=== PATIENT | female | born 1945 | race Caucasian/White ===

== ENCOUNTER 2019-07-11 13:29 | Outpatient (CLI) | payer MEDICARE, SELFPAY ==
--- NOTE | ~2019-07-11 | MM_ITS ---
EXAMINATION: MM screening magdalena BI w preeti HISTORY: Screening mammogram TECHNIQUE: Craniocaudal and mediolateral oblique 3-D tomosynthesis images were obtained and synthetic 2-D images were generated. CAD analysis was submitted and interpreted. COMPARISON: 05/13/2018, 04/08/2017, 02/12/2016 bilateral digital screening mammogram examinations BREAST PARENCHYMAL COMPOSITION: There are scattered areas of fibroglandular density. FINDINGS: Stable mild fibroglandular asymmetry. There are numerous bilateral benign calcifications in cluding calcified microhematomas, secretory calcifications, probable calcified small fibroadenomas. Approximately 3.6 x 6.5 mm asymmetric opacity is noted posteriorly in the outer mid left breast. Diag nostic left mammogram and targeted left breast ultrasound examination are recommended. Otherwise there is no evidence of suspicious mass, calcification, or architectural distortion to sugg est malignancy in either breast. There has been no other suspicious interval change. IMPRESSION: 1. 3.6 x 6.5 mm asymmetric opacity in posterior outer mid left breast 2. Diagnostic left mammogram and left breast ultrasound examination are recommended. BI-RADS Category 0: Incomplete: Needs additional imaging evaluation. Reviewed, dictated and finalized at location A. GER INTEL IMPRESSION: 1. 3.6 x 6.5 mm asymmetric opacity in posterior outer mid left breast 2. Diagnostic left mammogram and left breast ultrasound examination are recomme nded. BI-RADS Category 0: Incomplete: Needs additional imaging evaluation.
== END 2019-07-11 13:30 | disposition home or self-care (01) ==
PROVIDERS: PCP Internal Medicine; Visit Provider Internal Medicine
DX: Z12.31 Encounter for screening mammogram for malignant neoplasm of breast (principal)
CPT/HCPCS: 77063; 77067

== ENCOUNTER 2019-07-21 08:40 | Outpatient (CLI) | payer MEDICARE, SELFPAY ==
--- NOTE | ~2019-07-21 | MMUS_ITS ---
EXAMINATION: MM diagnostic magdalena LT w preeti, US breast LT limited HISTORY: Focal asymmetry of the left breast on screening mammogram TECHNIQUE: Additional 3-D tomosynthesis images of the left breast were performed and synthetic 2-D im ages were generated. CAD analysis was submitted and interpreted. High resolution limited left breast ultrasound was performed. COMPARISON: 07/11/2019, 05/27/2018, 05/13/2018, 04/08/2017, 02/12/2016 FINDINGS: MAMMOGRAPHIC FINDINGS: A focal asymmetry is present in the posterior third of the slightly outer breast at the 3:00 location 12 cm from the nipple. This has an appearance similar to prior mammograms with spot compression view s. There has been no suspicious interval change. ULTRASOUND: An intramammary lymph node is noted at the 2:00 location 9 cm from the nipple. On static sonographic images of the 2:00 location 5 cm from the nipple, there is suggestive of posterior shadowing however this is not discretely identified on the provided cine images. IMPRESSION: 1. Probably benign findings of the upper outer quadrant of the left breast. 2. Recommend 6 month follow-up left diagnostic mammogram and ultrasound. BI-RADS category 3, probably benign findings. Reviewed, dictated and finalized at location A. R MAKER IMPRESSION: 1. Probably benign findings of the upper outer quadrant of the left breast. 2. Recommend 6 month follow-up left diagnostic mammogram and ultrasound. BI-RADS category 3, probably benign findings.
== END 2019-07-21 08:41 | disposition home or self-care (01) ==
PROVIDERS: PCP Internal Medicine; Visit Provider Internal Medicine
DX: N64.89 Other specified disorders of breast (principal)
CPT/HCPCS: 76642; 77061; 77065; G0279

== ENCOUNTER 2020-05-30 12:26 | Outpatient (CLI) | payer MEDICARE, SELFPAY ==
[2020-05-30 13:06] LABS: SARS-CoV-2 Ag Negative (Negative)
== END 2020-05-30 12:27 | disposition home or self-care (01) ==
LOC: CHSLAB 12:30
PROVIDERS: PCP Internal Medicine; Visit Provider Internal Medicine
DX: Z20.828 Contact with and (suspected) exposure to other viral communicable diseases (principal)
CPT/HCPCS: 87426

== ENCOUNTER 2020-06-12 15:20 | Outpatient (CLI) | payer MEDICARE, SELFPAY ==
[2020-06-12 16:08] LABS: SARS-CoV-2 Ag Negative (Negative)
== END 2020-06-12 15:21 | disposition home or self-care (01) ==
LOC: CHSLAB 15:22
PROVIDERS: PCP Internal Medicine; Visit Provider Internal Medicine
DX: Z20.822 Contact with and (suspected) exposure to COVID-19 (principal)
CPT/HCPCS: 87426; C9803

== ENCOUNTER 2020-06-18 09:46 | Outpatient (CLI) | payer MEDICARE, SELFPAY ==
[2020-06-19 18:38] LABS: SARS-CoV-2 RNA PCR Negative
== END 2020-06-18 09:47 | disposition home or self-care (01) ==
LOC: CHSLAB 09:52
PROVIDERS: PCP Internal Medicine; Visit Provider Internal Medicine
DX: Z20.822 Contact with and (suspected) exposure to COVID-19 (principal)
CPT/HCPCS: C9803; U0003; U0005

== ENCOUNTER 2020-08-20 14:34 | Outpatient (CLI) | payer MEDICARE, SELFPAY ==
[2020-08-20 17:11] LABS: Influenza A QL RT-PCR Negative (Negative); Influenza B QL RT-PCR Negative (Negative); SARS-CoV-2 RNA PCR Negative
== END 2020-08-20 14:35 | disposition home or self-care (01) ==
PROVIDERS: PCP Internal Medicine; Visit Provider Internal Medicine
DX: R53.83 Other fatigue (principal)
CPT/HCPCS: 87502; C9803; U0003; U0005

== ENCOUNTER 2020-10-17 09:17 | Outpatient (CLI) | payer MEDICARE, SELFPAY ==
--- NOTE | ~2020-10-17 | MR_ITS ---
EXAMINATION: MR lumbar spine wo [facility] EXAM DATE: 10/17/2020 11:55 INDICATION: Spinal stenosis, lumbar region with neurogenic claudication TECHNIQUE: Multi-sequential, multiplanar MR images of the lumbar spine were obtained without contrast . Sagittal T1, T2, T2 fat saturation images. Axial T2 weighted images. Comparison is made to prior examination from 08/28/2012. FINDINGS: There is 5 mm anterolisthesis L4 on L5 with moderate loss of this disc height, mild at L3-4 . Moderate to severe loss of the L5-S1 disc height. The vertebral body heights are maintained. There are no suspicious marrow signal abnormalities. 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 This is a benign finding, is unchanged. Level by level evaluation: T12-L1: There is a minimal diffuse disc bulge. Facet arthropathy: Mild. Neural foraminal stenosis: No stenosis. Central canal stenosis: No stenosis. L1-L2: Disc does not extend beyond the endplate margin. Facet arthropathy: Mild. Neural foraminal stenosis: No stenosis. Central canal stenosis: No stenosis. L2-L3: Disc does not extend beyond the endplate margin. Facet arthropathy: Mild. Neural foraminal stenosis: No stenosis. Central canal stenosis: No stenosis. L3-L4: There is a mild diffuse disc bulge. Facet arthropathy: Moderate . Ligamentum flavum enlargement. Neural foraminal stenosis: Mild bilateral. Central canal stenosis: Mild. L4-L5: Tflp-gk-[id number] Facet arthropathy: Severe. Neural foraminal stenosis: Mild to moderate. Central canal stenosis: Moderate to severe. L5-S1: There is a mild diffuse disc bulge. Facet arthropathy: Moderate. Neural foraminal stenosis: Moderate bilateral, left greater than right. Central canal stenosis: Mild. Compared to 2013, significant progression in lower lumbar spondylosis. IMPRESSION: 1. L4-5 grade 1 anterolisthesis, moderate to severe central canal stenosis. 2. Stable focal cystic dilation of conus medullary central canal. Reviewed, dictated and finalized at location A.
== END 2020-10-17 09:18 | disposition home or self-care (01) ==
LOC: CHSIMG 09:18
PROVIDERS: PCP Internal Medicine; Visit Provider Internal Medicine
DX: M48.061 Spinal stenosis, lumbar region without neurogenic claudication (principal)
CPT/HCPCS: 72148

== ENCOUNTER 2020-10-30 09:27 | Outpatient (CLI) | payer MEDICARE, SELFPAY ==
--- NOTE | ~2020-10-30 | CT_ITS ---
EXAMINATION: CT lumbar spine wo con EXAM DATE: 10/30/2020 09:50 INDICATION: Lumbar disc disease with radiculopathy. TECHNIQUE: Spiral CT of the lumbar spine was performed without contrast. Axial, coronal and sagittal images lumbar spine were reviewed. The dose-length product (DLP) for this examination was 946.80 mG y-cm. The exposure was tailored according to patient size (auto mA exposure control), and iterative reconstruction (ASIR) was used as additional dose reduction technique. Correlation is made to Lumbar MR examination 10/17/2020. FINDINGS: There are several small foci of gas along the right side of the L5 spinous process. There i s 5 mm anterolisthesis L4 on L5 without spondylolysis. Moderate disc disease at this level, moderate to severe at the level below. Otherwise mild lumbar disc disease. There is moderate bilateral sacroil iac joint primary osteoarthritis. There are no bony erosions identified. Paraspinal soft tissue is u nremarkable. There is small sliding gastroesophageal hiatal hernia. Level by level evaluation: T12-L1: Disc does not extend beyond the endplate margin. Facet arthropathy: Mild. Neural foraminal stenosis: No stenosis. Central canal stenosis: No stenosis. L1-L2: Disc does not extend beyond the endplate margin. Facet arthropathy: Mild. Neural foraminal stenosis: No stenosis. Central canal stenosis: No stenosis. L2-L3: There is a minimal diffuse disc bulge. Facet arthropathy: Mild. Neural foraminal stenosis: No stenosis. Central canal stenosis: No stenosis. L3-L4: There is a mild diffuse disc bulge. Facet arthropathy: Moderate. Neural foraminal stenosis: Mild bilateral. Central canal stenosis: Mild to moderate. L4-L5: There is a moderate diffuse disc bulge. Facet arthropathy: Moderate to severe. Neural foraminal stenosis: Mild to moderate bilateral. Central canal stenosis: Moderate to severe. L5-S1: There is a mild to moderate diffuse disc bulge. Facet arthropathy: Moderate to severe. Neural foraminal stenosis: Moderate bilateral. Central canal stenosis: Mild. IMPRESSION: 1. L4-5 grade 1 anterolisthesis without spondylolysis, moderate to severe canal stenosis and facet a rthropathy. 2. L5-S1 moderate to severe disc disease and facet arthropathy. Moderate bilateral neural foraminal stenosis at this level, less at others. Reviewed, dictated and finalized at location D. IMPRESSION: 1. L4-5 grade 1 anterolisthesis without spondylolysis, moderate to severe dalton l stenosis and facet arthropathy. 2. L5-S1 moderate to severe disc disease and facet arthropathy. Moderate bila teral neural foraminal stenosis at this level, less at others.
== END 2020-10-30 09:28 | disposition home or self-care (01) ==
PROVIDERS: PCP Internal Medicine
DX: M51.16 Intervertebral disc disorders with radiculopathy, lumbar region (principal)
CPT/HCPCS: 72131

== ENCOUNTER 2020-11-22 17:09 | Outpatient (CLI) | payer MEDICARE, SELFPAY ==
--- NOTE | ~2020-11-22 | XR_ITS ---
EXAMINATION: XR chest 2V DATE: 11/22/2020 17:27 INDICATION: Right anterior chest pain. TECHNIQUE: Frontal and lateral views of the chest were obtained. COMPARISON: Chest 2 views 12/22/2018 FINDINGS: The chest demonstrates clear lungs without pneumonia, pleural effusion, or pneumothorax. Th e heart size is normal. There are surgical clips in the abdomen. IMPRESSION: 1. No acute cardiopulmonary disease. Reviewed, dictated and finalized at location A.
== END 2020-11-22 17:10 | disposition home or self-care (01) ==
LOC: CHSIMG 17:12
PROVIDERS: PCP Internal Medicine; Visit Provider Internal Medicine
DX: R07.9 Chest pain, unspecified (principal)
CPT/HCPCS: 71046

== ENCOUNTER 2020-11-26 08:03 | Outpatient (CLI) | payer MEDICARE, SELFPAY ==
--- NOTE | 2020-11-26 09:15 | EST_ITS ---
Patient Info Name: Beatris Clarke Age: 75 years : 1945 Gender: Female Ht: 60 in Wt: 171 lbs BSA: 1.85 m2 HR: 75 bpm BP: 126 / 78 mmHg Heart Rhythm: Sinus Rhythm Technical Quality: Excellent Exam Date: 11/26/2020 9:21 AM Exam Location: [facility] Patient Status: Outpatient Admit Date: 11/26/2020 Staff Ordering Physician: Waqar Armstrong MD Attending Provider: Waqar Armstrong MD Exercise Technologist: Helena Heredia CRT Exercise Physician: Angelia Momin CEP Exam Type: CA stress siena w NM Study Info Indications ChestPain - A nuclear stress test was performed. History/Risk Factors Hypertension: Yes History/Risk Factors HTN. Summary 1. 1. Negative lexiscan stress test for ischemic ST changes by ECG criteria. 2. 2. Stable hemodynamics throughout the test. 3. 3. Nuclear scan to follow and will be reported separately. Please correlate with it. Protocol: LEXISCAN Stress ECG Details Stage: REST Duration (min): 1 min : 25 sec HR (bpm): 73 SBP (mmHg): 126 DBP (mmHg): 78 Stage: REST Duration (min): 5 min : 11 sec HR (bpm): 84 SBP (mmHg): 126 DBP (mmHg): 78 Stage: STAGE 1 Duration (min): 0 min : 5 sec HR (bpm): 84 SBP (mmHg): 126 DBP (mmHg): 78 Stage: RECOVERY Duration (min): 0 min : 54 sec HR (bpm): 107 SBP (mmHg): 126 DBP (mmHg): 78 Stage: RECOVERY Duration (min): 1 min : 54 sec HR (bpm): 106 SBP (mmHg): 160 DBP (mmHg): 71 Stage: RECOVERY Duration (min): 2 min : 54 sec HR (bpm): 95 SBP (mmHg): 150 DBP (mmHg): 71 Stage: RECOVERY Duration (min): 3 min : 54 sec HR (bpm): 97 SBP (mmHg): 140 DBP (mmHg): 71 Stage: RECOVERY Duration (min): 4 min : 54 sec HR (bpm): 93 SBP (mmHg): 127 DBP (mmHg): 73 Stage: RECOVERY Duration (min): 5 min : 54 sec HR (bpm): 90 SBP (mmHg): 137 DBP (mmHg): 72 Stage: RECOVERY Duration (min): 6 min : 5 sec HR (bpm): 92 SBP (mmHg): 137 DBP (mmHg): 72 Rest HR: 84 bpm Peak HR: 108 bpm Rest Sys BP: 126 mmHg Peak Sys BP: 160 mmHg Max Pred HR: 146 bpm % Max Pred HR: 74 % Target HR: 124 bpm Max RPP: 17,280 bpm*mmHg Target HR Summary: Pt. reached 87% THR BP Response: Normal blood pressure response Termination Reason: Completion of Protocol Cardiac Symptoms: General Weird feeling, Dyspnea Total Time: 0 min : 5 sec Rest Knox BP: 78 mmHg Peak Knox BP: 71 mmHg Total Dose: 0.4 mg Resting ECG Normal sinus rhythm, IRBBB, low voltage in precordial leads. Stress ECG None. Arrhythmias None. Report Signatures
--- NOTE | 2020-11-26 11:43 | WPDCARIOSTRE ---
Nuclear Stress Test INDICATIONS Indications: Dyspnea PROCEDURE Procedure Performed: Myocardial Perf Spect-Multi Procedure: Patient underwent a lexiscan stress test, and immediately injected with 33.8 mCi of cardiolyte. Multiple tomographic images were obtained. These were of good quality. No evidence of perfusion defects with stress imaging. A separate resting images were obtained after patient was injected with 10.3 mCi of cardiolyte. Multiple tomographic images were obtained. These were of good quality. No evidence of perfusion defects with rest imaging. CONCLUSION Conclusion: 1. Normal myocardial perfusion imaging demonstrating no perfusion defects with stress or rest imaging. 2. No reversible ischemia. 3. Left ventriculogram demonstrates hyperdynamic LV systolic function with measured ejection fraction at 86%. 4. No wall motion abnormalities. 5. TID score is normal at 0.84.
== END 2020-11-26 08:04 | disposition home or self-care (01) ==
LOC: CHSIMG 08:04
PROVIDERS: PCP Internal Medicine; Visit Provider Internal Medicine
DX: R07.9 Chest pain, unspecified (principal); R94.31 Abnormal electrocardiogram [ECG] [EKG]
CPT/HCPCS: 78452; 93017; A9502; J2785

== ENCOUNTER 2020-12-03 09:13 | Outpatient (CLI) | payer MEDICARE, SELFPAY ==
[2020-12-03 12:15] LABS: SARS-CoV-2 RNA PCR Negative (Negative)
== END 2020-12-03 09:14 | disposition home or self-care (01) ==
PROVIDERS: PCP Internal Medicine; Visit Provider Family Medicine
DX: Z11.59 Encounter for screening for other viral diseases (principal); Z20.822 Contact with and (suspected) exposure to COVID-19
CPT/HCPCS: C9803; U0003; U0005

== ENCOUNTER 2021-01-21 10:53 | Outpatient (RCR) | payer MEDICARE, SELFPAY ==
--- NOTE | 2021-01-21 11:48 | PTOPEVAL ---
Thank you for referring Beatris Clarke to [facility].? The patient is scheduled to be seen for therapy? __3__x/week for 12 visits. Please review, sign, date and return this plan of care ERNST. I agree with and certify that the following plan of care is medically necessary. Referring Physician Date Admitting Provider: Attending Provider: IRMA MORLEY Referring Provider: *PT Outpatient Evaluation Start: 01/21/21 11:10 Freq: Status: Active Protocol: Document 01/21/21 11:10 LEISA (Rec: 01/21/21 11:48 LEISA [email or web address]) Therapy Assessment Status Assessment Status Assessment Status Evaluation Evaluation Information Problem Diagnosis low back pain Onset 12/06/20 Subjective Information Pt. reports that she underwent Query Text:As Reported By Patient/ a lumbar fusion on 12/06/20 of Family the L4 and L5 verterbrae. Pt. reports that she has had pain since surgery. She reports that prior to surgery she was developing leg weakness, which was the reason for surgery. She states that pain is not intense, but is constantly present. She is taking Tylenol for pain currently. She reports that pain is most noticable with movement, and more noticable on the left. She reports that she can walk for 15 minutes, but states that she will have to immediately sit down. She report that her goal is to decrease her pain and be able to walk further. 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
--- NOTE | 2021-03-05 15:45 | PTOPEVAL ---
Thank you for referring Beatris Clarke to [facility].? The patient is scheduled to be seen for therapy? ____x/week for ___ weeks. Please review, sign, date and return this plan of care ERNST. I agree with and certify that the following plan of care is medically necessary. Referring Physician Date Admitting Provider: Attending Provider: IRMA MORLEY Referring Provider: DaphneyPT Outpatient Evaluation Start: 01/21/21 11:10 Freq: Status: Active Protocol: Document 03/05/21 13:01 [facility] (Rec: 03/05/21 15:43 [facility] [email or web address]) Evaluation Information Problem Diagnosis low back pain Onset 12/06/20 Additional Evaluation Detail oswestry = 32% functionally declined Subjective Information patient reports she has no Query Text:As Reported By Patient/ pain in the lower back, but Family has pain in her bilateral buttocks. she reports the piriformis stretch at home helps, but reports overall this is the pain that limits her function. patient reports she would like to continue skilled PT to focus on her hips Pain Assessment Timing of Pain Assessment Timing of Pain Assessment Assessment Pain Scale Pain Scale Used Numeric (1 - 10) Self Report Pain Assessment Bilateral Buttock(s) Reported Pain Level 2 Lower Back Reported Pain Level 0 Pain Score Pain Score 0,2: Self Report Interventions Used Interventions Used By Clinicians Activity or ADL's,Education, Electrical Stimulation, Exercise,Heat,Manual Therapy Techniques Cervical and Lumbar ROM Lumbar ROM Lumbar Flexion Active Ankle,Floor Query Text:Hands to: Lumbar Extension (0-40) 10 Query Text:Active in Degrees Lumbar Lateral Flexion Right (0-40) 30 Query Text:Active in Degrees Lumbar Lateral Flexion Left (0-40) 30 Query Text:Active in Degrees Cervical and Lumbar Muscle Testing Lumbar Strength Upper Abdominal Strength 3+Fair+ Lower Abdominal Strength 3 Fair Lower Extremity Muscle Strength Testing General Lower Extremity Strength Gross Lower Extremity Strength -bilateral hip flexion 4+/5 -R hip abduction 4/5 -L hip abduction 4-/5 -bilateral knee flexion 4+/5 -bilateral knee extension 5/5 -bilateral ankle dorsiflexion
--- NOTE | 2021-03-28 15:02 | PTOPEVAL ---
Thank you for referring Beatris Clarke to [facility].? The patient is scheduled to be seen for therapy? ____x/week for ___ weeks. Please review, sign, date and return this plan of care ERNST. I agree with and certify that the following plan of care is medically necessary. Referring Physician Date Admitting Provider: Attending Provider: IRMA MORLEY Referring Provider: PAYTON Outpatient Evaluation Start: 01/21/21 11:10 Freq: Status: Active Protocol: Document 03/28/21 13:05 ACR (Rec: 03/28/21 14:03 [email or web address]) Therapy Assessment Status Assessment Status Assessment Status Discharge Evaluation Information Problem Diagnosis low back pain Onset 12/06/20 Subjective Information Patient reports that she feels Query Text:As Reported By Patient/ the back is getting better. Family She states she has been in a lot of pain the last 3 months, but it is getting better each day. 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 She starts to get pain around 2 in the afternoon . She states she went back to the MD and got an X-ray which shows proper healing of the surgery, but she has a lot of arthritis. Pain Assessment Timing of Pain Assessment Timing of Pain Assessment Assessment Pain Scale Pain Scale Used Numeric (1 - 10) Self Report Pain Assessment Bilateral Buttock(s) Reported Pain Level 3 Greatest Pain Intensity 6 Lower Back Reported Pain Level 3 Greatest Pain Intensity 6 Pain Score Pain Score 3,3: Self Report Interventions Used Interventions Used By Clinicians Activity or ADL's,Electrical Stimulation,Exercise,Heat Cervical and Lumbar ROM Lumbar ROM Lumbar Flexion Active Ankle,Floor Query Text:Hands to: Lumbar Extension (0-40) 10 Query Text:Active in Degrees Lumbar Lateral Flexion Right (0-40) 30 Query Text:Active in Degrees Lumbar Lateral Flexion Left (0-40) 30 Query Text:Active in Degrees Cervical and Lumbar Muscle Testing Lumbar Strength Upper Abdominal Strength 3+Fair+ Lower Abdominal Strength 3 Fair Lower Extremity Muscle Strength Testing Hip Strength Right Hip Flexion Strength 4+ Good
== END 2021-03-28 09:55 | disposition home or self-care (01) ==
LOC: CHSPT 10:53
DX: M51.16 Intervertebral disc disorders with radiculopathy, lumbar region (principal); M54.5 Low back pain; M48.062 Spinal stenosis, lumbar region with neurogenic claudication
CPT/HCPCS: 97014; 97110; 97140; 97161; G0283

== ENCOUNTER 2021-04-03 13:09 | Outpatient (CLI) | payer MEDICARE, SELFPAY ==
[2021-04-03 14:37] LABS: Influenza A QL RT-PCR Negative (Negative); Influenza B QL RT-PCR Negative (Negative); SARS-CoV-2 RNA PCR Negative (Negative)
== END 2021-04-03 13:10 | disposition home or self-care (01) ==
LOC: CHSLAB 13:11
PROVIDERS: PCP Internal Medicine; Visit Provider Internal Medicine
DX: J06.9 Acute upper respiratory infection, unspecified (principal); Z20.822 Contact with and (suspected) exposure to COVID-19
CPT/HCPCS: 87502; C9803; U0003; U0005

== ENCOUNTER 2021-11-20 12:47 | Outpatient (CLI) | payer MEDICARE, SELFPAY ==
--- NOTE | ~2021-11-20 | DEXA_ITS ---
Bone Density Report Name: KAYA PEREZ Age: 76 Sex: Female Ethnicity: White Date of : 1945 Indication: postmenopausal; screening for osteoporosis; height loss; hysterectomy; Referring Provider: Waqar Armstrong Study: Bone densitometry was performed. Exam Date: November 20, 2021 Accession number: [id number] Bone Density: Region BMD T-score Z-score Classification Femoral Neck (Left) 0.664 -1.7 0.4 Osteopenia Total Hip (Left) 0.868 -0.6 1.2 Normal Femoral Neck (Right) 0.656 -1.7 0.3 Osteopenia Total Hip (Right) 0.859 -0.7 1.1 Normal Femoral Neck Mean 0.660 -1.7 0.4 Osteopenia Total Hip Mean 0.863 -0.6 1.1 Normal World Health Organization criteria for BMD impression classify patients as: Normal (T-score at or above -1.0), Osteopenia (T-score between -1.0 and -2.5), or Osteoporosis (T-score at or below -2.5). 10-year Fracture Risk(1): Major Osteoporotic Fracture 11% Hip Fracture 2.4% Reported Risk Factors: [place] (), Neck BMD=0.656, BMI=34.5 (1) FRAX(R) Version 3.08. Fracture probability calculated for an untreated patient. Fracture probability may be lower if the patient has received treatment. Clinical Information Provided by Patient: Has used the following medications: Vitamin D Has the following medical conditions: Hysterectomy Patient maximum height was 61 Menopause Age: 56 No regular weight bearing exercise Onset of menses at age 13 Number of children 1 Impression: The patient has low bone mass, based on the Left Femoral Neck T-score. Discussion: BONE DENSITY IS LOW AT ONE OR MORE SKELETAL SITES. This patient's lowest T-score is low at one or more skeletal sites. It meets the World Health Organization's (WHO) criteria for ?low bone mass? (T-score between -1.0 and -2.5). The patient's 10-year risk of fracture as calculated by FRAX is less than the threshold where pharmacological therapy is recommended by the National Osteoporosis Foundation (NOF). However, all treatment decisions require clinical judgment and consideration of individual patient factors, including patient preferences, comorbidities, previous drug use, risk factors not captured in the FRAX model (e.g., frailty, falls, vitamin D deficiency, increased bone turnover, interval significant decline in bone density) and possible under or overestimation of fracture risk by FRAX. The patient should follow a healthful lifestyle (good nutrition with adequate calcium and vitamin D, and appropriate weight-bearing exercise). Follow-Up: Consider repeating this study in 2 to 3 years to reassess this patient's status, or sooner if there is some new clinical indication. Reported by: Dr. Jerson Falk on 11/20/2021 1:14:00 PM. Reviewed, dictated and finaliz
== END 2021-11-20 12:48 | disposition home or self-care (01) ==
LOC: CHSIMG 12:48
PROVIDERS: PCP Internal Medicine; Visit Provider Internal Medicine
DX: M81.0 Age-related osteoporosis without current pathological fracture (principal)
CPT/HCPCS: 77080

== ENCOUNTER 2022-05-03 08:54 | Outpatient (CLI) | payer MEDICARE, SELFPAY ==
--- NOTE | ~2022-05-03 | MR_ITS ---
EXAMINATION: MR brain IAC wo/w con DATE: 05/03/2022 10:12 INDICATION: Vertigo. TECHNIQUE: Magnetic resonance imaging (MRI) of the brain, brainstem, and internal auditory canals was performed without and with 10 mL MultiHance intravenous contrast. COMPARISON: None. FINDINGS: There are scattered areas of nonspecific increased T2-weighted signal intensity in the cere bral white matter and bilateral basal ganglia. There is no intracranial hemorrhage, acute infarction, or abnormal intracranial mass lesion. The ventricles are normal in size. There are likely changes of ocular lens replacement surgeries. There is mild mucosal thickening in the ethmoid sinuses. The inte rnal auditory canals and inner and middle ears are normal. The mastoid air cells are normal. IMPRESSION: 1. Mild nonspecific cerebral white matter disease and disease of the bilateral basal ganglia, which l ikely represents chronic small vessel ischemic disease. Reviewed, dictated and finalized at location E. VAULT ATTENDANT IMPRESSION: 1. Mild nonspecific cerebral white matter disease and disease of the bilateral basal ganglia, which likely represents chronic small vessel ischemic disease.
== END 2022-05-03 08:55 | disposition home or self-care (01) ==
LOC: CHSIMG 08:56
PROVIDERS: PCP Internal Medicine; Visit Provider Internal Medicine
DX: R42 Dizziness and giddiness (principal)
CPT/HCPCS: 70553; A9577

== ENCOUNTER 2022-05-08 09:26 | Outpatient (CLI) | payer MEDICARE, SELFPAY ==
--- NOTE | ~2022-05-08 | MR_ITS ---
EXAMINATION: MR lumbar spine wo con DATE: 05/08/2022 10:46 INDICATION: Low back pain. TECHNIQUE: Magnetic resonance imaging (MRI) of the lumbar spine was performed without intravenous con trast. Sequences included sagittal T2-weighted FSE, sagittal T2-weighted FS FSE, sagittal T1-weighted FSE, and axial T2-weighted FSE. COMPARISON: Lumbar spine MRI 10/17/2020 FINDINGS: There is 2 mm anterolisthesis of L3 on L4 and 5 mm anterolisthesis of L4 and L5. Vertebral body heights are normal. There is severely decreased disc height at T10-T11, moderately decreased dis c height at T11-T12, mildly decreased disc height at T12-L1 and L3-L4, and severely decreased disc he ight at L5-S1. There are changes of anterior and posterior fusion procedures at L4-L5 with interbody devices and pedicle screws. 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 There i s a 9 mm cyst in right kidney. The following disc levels are specifically discussed: T11-T12: The disc is bulging with superimposed right central extrusion. There is mild bilateral facet joint osteoarthritis. There is moderate right neural foraminal stenosis. There is mild central canal stenosis. T12-L1: The disc is bulging. There is mild bilateral facet joint osteoarthritis. There is no neural f oraminal stenosis. There is mild central canal stenosis. L1-L2: The disc does not extend beyond the endplate margin. There is mild bilateral facet joint osteo arthritis. There is no neural foraminal stenosis. There is no central canal stenosis. L2-L3: The disc does not extend beyond the endplate margin. There is mild bilateral facet joint osteo arthritis. There is no neural foraminal stenosis. There is no central canal stenosis. L3-L4: The disc is bulging. There is severe bilateral facet joint osteoarthritis. There is mild bilat eral neural foraminal stenosis. There is mild central canal stenosis. L4-L5: There is severe bilateral facet joint osteoarthritis. There is mild bilateral neural foraminal stenosis. There is mild central canal stenosis. L5-S1: The disc is bulging and has an annular fissure. There is severe bilateral facet joint osteoart hritis. There is mild bilateral neural foraminal stenosis. There is mild central canal stenosis. IMPRESSION: 1. 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 2. Severe lumbar and lower thoracic spondylosis, stable from 10/17/2020. 3. Anterior and posterior fusion procedures at L4-L5. Reviewed, dictated and finalized at location E. 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 2. Severe lumbar and lower thoracic spondylosis, stable from 10/17/2020. 3. Anterior and posterior fusion procedures at L4-L5.
== END 2022-05-08 09:27 | disposition home or self-care (01) ==
LOC: CHSIMG 09:28
PROVIDERS: PCP Internal Medicine; Visit Provider Internal Medicine
DX: M54.50 Low back pain, unspecified (principal)
CPT/HCPCS: 72148

== ENCOUNTER 2022-11-24 13:09 | Outpatient (RCR) | payer MEDICARE, SELFPAY ==
--- NOTE | 2022-11-24 14:06 | OPREHPOC ---
Outpatient Therapy Plan of Care This is a Multidisciplinary Plan of Care that may contain components documented by all disciplines (PT, OT, and ST.) PT Problem 1 PT Problem #1 Knowledge Deficit PT Goal 1 Goal Patient to demonstrate independence with HEP Target Visit 18 Progress Met PT Problem 2 PT Problem #2 Pain PT Goal 1 Goal Patient to report highest pain at 2/10 Target Visit 18 PT Problem 3 PT Problem #3 Impaired Functional Mobil PT Goal 1 Goal 1. Patient to report ability to walk her dog with no increase in pain 2. Patient to report ability to grocery shop with no increase in pain Target Visit 18 PT Problem 4 PT Problem #4 Impaired Strength PT Goal 1 Goal Patient to demonstrate 5/5 strength of B LE to return to house hold tasks at [facility].
--- NOTE | 2022-11-24 14:07 | PTOPEVAL1 ---
Assessment and note entered by Lainey Leonard DPT Evaluation Information Assessment Status Evaluation Diagnosis low back pain Onset 09/25/22 Subjective Information Patient reports she had a fusion in November 2020 and then more recently had a laminectory of 09/25/22. She reports prior to laminectomy she was having pain down her L LE. She reports since surgery her LE pain has resolved but she has soreness in her low back. Patient reports difficulty with prolonged periods, walking dog, sitting for prolonged periods. She reports she started doing her HEP from prior PT. Reported Pain Level Pain Score 0: Self Report Assessment PT Clinical Summary Patient is a 77 year old female who presents to PT with low back pain following lumbar laminectomy. Patient demosntrates decreased B hip strength, decreased B LE flexibility impairing her ability to ambulate to grocery shop, walk her dog and complete house hold tasks. She would benefit from skilled PT to address impairments and return to PLOF. Plan of Care Interventions Electrical Stimulation,Gait Training,Hot Pack/Cold Pack,Manual Therapy,Neuro Re-education,Patient/ Caregiver Educati,Therapeutic Activities, Therapeutic Exercise,Self-Care/Home Management PT Services Indicated Yes Treatment Frequency and 3x weekly for 18 visits Duration These treatments will address the objective and functional deficits as defined above. The patient will be advanced safely and appropriately in order for the patient to progress towards his/her prior level of function. Additional exercises will be introduced and as well as a comprehensive home exercise program upon discharge, if needed, ?to ensure carryover of functional gains achieved in the clinic. This treatment plan has been reviewed and agreement upon by the patient.
--- NOTE | 2022-12-24 16:33 | PTOPDC ---
Assessment and note entered by JT File, PT Evaluation Information Assessment Status Discharge Diagnosis low back pain Onset 09/25/22 Subjective Information patient reports she is doing great. she reports she is compliant with her HEP every day. Assessment PT Clinical Summary mrs. richardson presents to skilled PT for her 5th skilled therapy visit. as of this date, she has met nearly all goals, and is independent/compliant with her HEP. she has little to no pain, and would like to be down with therapy. as of this date, she will DC to inependent HEP at home. Plan of Care PT Services Indicated Yes
--- NOTE | 2022-12-24 16:33 | OPREHPOC ---
Outpatient Therapy Plan of Care This is a Multidisciplinary Plan of Care that may contain components documented by all disciplines (PT, OT, and ST.) PT Problem 1 PT Problem #1 Knowledge Deficit PT Goal 1 Goal Patient to demonstrate independence with HEP Target Visit 18 Progress Met PT Problem 2 PT Problem #2 Pain PT Goal 1 Goal Patient to report highest pain at 2/10 Target Visit 18 Progress Met PT Problem 3 PT Problem #3 Impaired Functional Mobil PT Goal 1 Goal 1. Patient to report ability to walk her dog with no increase in pain 2. Patient to report ability to grocery shop with no increase in pain Target Visit 18 Progress Met PT Problem 4 PT Problem #4 Impaired Strength PT Goal 1 Goal Patient to demonstrate 5/5 strength of B LE to return to house hold tasks at [facility]. Progress Partially Met
== END 2022-12-11 20:00 | disposition home or self-care (01) ==
LOC: CHSPT 13:09
DX: M54.16 Radiculopathy, lumbar region (principal)
CPT/HCPCS: 97014; 97110; 97140; 97161; G0283

== ENCOUNTER 2023-01-19 12:06 | Outpatient (CLI) | payer MEDICARE, SELFPAY ==
--- NOTE | ~2023-01-19 | CT_ITS ---
EXAMINATION: CT sinus wo con DATE: 01/19/2023 12:32 INDICATION: Sinusitis TECHNIQUE: Computed tomography (CT) of the paranasal sinuses was performed without intravenous contra st. The dose-length product was 233.26 mGy-cm. Automated exposure control and iterative reconstructio n technique were employed. COMPARISON: None FINDINGS: There is mucosal thickening of the left maxillary sinus. No air-fluid levels. Leftward nasa l septal deviation. Ostiomeatal units are patent. 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 Mastoids are p neumatized. IMPRESSION: 1. Left maxillary sinusitis. Reviewed, dictated and finalized at location B.
== END 2023-01-19 12:07 | disposition home or self-care (01) ==
LOC: CHSIMG 12:07
PROVIDERS: PCP Internal Medicine; Visit Provider Internal Medicine
DX: J31.0 Chronic rhinitis (principal); J32.0 Chronic maxillary sinusitis
CPT/HCPCS: 70486

== ENCOUNTER 2024-04-12 16:06 | Outpatient (CLI) | payer MEDICARE, SELFPAY ==
--- NOTE | ~2024-04-12 | CT_ITS ---
EXAMINATION: CTA chest PE protocol DATE: 04/12/2024 18:24 EXCHANGE ARCHITECT INDICATION: Elevated d-dimer TECHNIQUE: Computed tomographic angiography (CTA) of the chest was performed with 100 mL Omnipaque-35 0 intravenous contrast. The dose-length product was 390.24 mGy-cm. Maximum intensity projection 3D-re constructions of the aorta and other arteries were constructed by the technologist on a separate work station. COMPARISON: 07/20/2015 FINDINGS: No filling defect identified within the main or proximal pulmonary arteries. The main pulmonary artery is not enlarged. The thoracic aorta is unremarkable. Interstitial thickening with tree-in-bud opacification detected bilaterally, findings suggesting hype rsensitivity pneumonitis for which clinical correlation is needed. No focal infiltrate or effusion. The heart is of normal size, without pericardial effusion. No significant lymphadenopathy within the mediastinum. IMPRESSION: No pulmonary embolus. No aortic dissection. Findings within the bilateral lung branham suggesting hypersensitivity pneumonitis for which clinical correlation is needed. Reviewed, dictated and finalized at location A. ANGE ARCHITECT IMPRESSION: No pulmonary embolus. No aortic dissection. Findings within the bilateral lung branham suggesting hypersensitivity pneumonit is for which clinical correlation is needed.
[2024-04-12 16:29] LABS: Hematocrit 44.4 % (35.0-42.0); Hemoglobin 14.8 g/dL (11.7-13.8); Mean Corpuscular HGB Conc 33.3 g/dL (32-36); Mean Corpuscular Hemoglobin 29.6 pg (27.0-31.0); Mean Corpuscular Volume 88.8 fL (78.0-102.0); Mean Platelet Volume 9.4 fl (9.2-11.8); Platelet Count Result 289 K/mm3 (150-420); Red Cell Distribution Width 11.8 % (11.6-14.4); White Blood Count 8.8 K/mm3 (4.8-10.8)
[2024-04-12 16:40] LABS: D Dimer 1.77 mg/L (0.19-0.50)
[2024-04-12 16:43] LABS: Anion Gap 12 mmol/L (4-12); Blood Urea Nitrogen 17 mg/dL (7-18); Calcium 9.9 mg/dL (8.5-10.1); Carbon Dioxide 28 mmol/L (21-32); Chloride 98 mmol/L (98-108); Estimated Glomerular Filt Rate > 60; Glucose 93 mg/dL (70-99); NT Pro B Type Natriuretic Pept 75 pg/mL (0-450); Osmolality Calculated 287 mOsm/kg (285-295); Potassium 3.3 mmol/L (3.5-5.1); Sodium 138 mmol/L (136-145)
== END 2024-04-12 16:07 | disposition home or self-care (01) ==
PROVIDERS: PCP Internal Medicine; Visit Provider Internal Medicine
DX: R07.9 Chest pain, unspecified (principal); R06.00 Dyspnea, unspecified; R91.8 Other nonspecific abnormal finding of lung field
CPT/HCPCS: 36415; 71275; 80048; 83880; 85027; 85380; Q9967

== ENCOUNTER 2024-04-13 11:26 | Outpatient (CLI) | payer MEDICARE, SELFPAY ==
[2024-04-14 13:12] LABS: Alpha-1-Antitrypsin, QN 150 mg/dL (83-199)
[2024-04-15 07:29] LABS: Immunoglobulin G 1116 mg/dL (600-1540); Immunoglobulin M 280 mg/dL (50-300)
== END 2024-04-13 11:27 | disposition home or self-care (01) ==
LOC: CHSLAB 11:29
PROVIDERS: PCP Internal Medicine; Visit Provider Internal Medicine
DX: J67.9 Hypersensitivity pneumonitis due to unspecified organic dust (principal)
CPT/HCPCS: 36415; 82103; 82784; 82785; 86038; 86039

== ENCOUNTER 2024-04-14 10:55 | Outpatient (CLI) | payer MEDICARE, SELFPAY | END 2024-04-14 10:56 | disposition home or self-care (01) | LOC: CHSCARD 10:57 | PROVIDERS: PCP Internal Medicine; Visit Provider Internal Medicine | DX: J67.9 Hypersensitivity pneumonitis due to unspecified organic dust (principal) | CPT/HCPCS: 94060; 94726; 94729 ==

== ENCOUNTER 2024-09-07 09:59 | Outpatient (CLI) | payer MEDICARE, SELFPAY ==
--- NOTE | ~2024-09-07 | US_ITS ---
Limited Abdominal Sonogram: Real-time sonographic imaging of the right upper quadrant was performed. Clinical History: Abnormal liver enzymes, right upper quadrant pain Findings: The liver appears heterogeneous, with no evidence of mass lesion or bile duct dilatation. Main portal vein demonstrates normal direction of flow. The gallbladder is absent, compatible prior c holecystectomy. The common bile duct measures 4 mm. The visualized pancreas, aorta, and IVC are unre markable. Impression: Possible fatty infiltration of liver. Reviewed, dictated and finalized at location M. Impression: Possible fatty infiltration of liver.
--- OUTSIDE RECORDS SUMMARY | 2024-09-07 11:16 | XMS_ITS | Encounter Summary ---
Author Organization [facility] Address [address] [place] [address] Care Team Providers Care Log Buncher Name Role Phone Waqar Armstrong MD Primary Care Provider [phone] Encounter Details Date Type Department Care Team (Late st Contact Info) Description 03/13/2008 Orders Only [facility] [place] [place] Health Information Management [address] [place] [address] Scanning, Provider Social History Tobacco Use Types Packs/Day Years Used Date Smoking Tobacco: Never Assessed Comments Unknown Sex and Gender Information Value Date Recorded Sex Assigned at Not on file 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 Gender Identity Female 08/29/2019 4:07 PM CDT Sexual Orientation Not on file documented as of this encounter Plan of Treatment Upcoming Encounters Date Type Department Care Team (Late st Contact Info) Description 11/15/2024 10:30 AM CDT Hospital Encounter [address] [address] Aleida Hernandez MD [address] [place] [address] DR PE[address]A [address] [place] [id number] 11/15/2024 10:30 AM CDT - 11/15/2024 11:00 AM CDT Surgery [address] [address] Aleida Hernandez MD [address] [place] [address] [place] [address] COLONOSCOPY Scheduled Procedures Name Priority Associated Diagnoses Date/Ti me COLONOSCOPY Personal history of colonic polyps Encounter for screening colonoscopy 11/15/2024 10:30 AM CDT documented as of this encounter Procedures Procedure Name Priority Date/Time Associated Diagnosis Comments GI - RESULT 03/13/2008 SCAN - PATHOLOGY 03/13/2008 documented in this encounter Results * SCAN - PATHOLOGY (03/13/2008) us Provider Scanning Final Result * GI - RESULT (03/13/2008) Anatomical Region Laterality Modality Other us Provider Scanning Final Result documented in this encounter Visit Diagnoses Not on filedocumented in this encounter Care Teams Log Buncher Relationship Specialty Start Date End Date Waqar Armstrong MD [address] [place] [address] PCP - General 03/04/17 documented as of this encounter
--- OUTSIDE RECORDS SUMMARY | 2024-09-07 11:16 | XMS_ITS | Referral Summary ---
Author Organization [facility] Address [address] [place] [address] Care Team Providers Care Channel Man Name Role Phone Waqar Armstrong MD Primary Care Provider [phone] Encounters Date Type Department Care Team Description 09/06/[address] [facility] Gastroenterology at [address] [place] [address] Aleida Hernandez MD 08/31/[address] [facility] Gastroenterology at [address] [place] [address] Esther Singleton from Last 3 Months Allergies Active Allergy Reactions Criticality Noted Date Comments Other Itching Low 11/10/2019 Pt reports itchy eyes Wheat Other (See comments) Low 11/10/2019 Itchiness Medications albuterol HFA (PROVENTIL HFA,VENTOLIN HFA,PROAIR HFA) 90 mcg/actuation inhaler Inhale 2 puffs every 6 (six) hours as needed for wheezing Active montelukast (SINGULAIR) 10 mg tablet Take 10 mg by mouth nightly Active multivitamin capsule Take 1 capsule by mouth daily Active levothyroxine (SYNTHROID) 88 mcg tablet Take 88 mcg by mouth banking analyst before breakfast Active pantoprazole DR (PROTONIX) 20 mg EC tablet Take 20 mg by mouth daily Active triamterene-hyd roCHLOROthiazid e (triamterene-hy droCHLOROthiazi de) 37.5-25 mg per tablet/capsule Take 1 tablet/capsule by mouth daily Active Active Problems Problem Noted Date Diagnosed Date Personal history of colonic polyps 10/02/2020 Overview (10/02/2020): Added automatically from request for surgery [id number] Encounter for screening colonoscopy 10/02/2020 Overview (10/02/2020): Added automatically from request for surgery [id number] Social History Tobacco Use Types Packs/Day Years Used Date Smoking Tobacco: Never Smokeless Tobacco: Never Alcohol Use Standard Drinks/Week Comments Never 0 (1 standard drink = 0.6 oz pur e alcohol) AUDIT-C Answer Date Recorded Q1: How often do you have a drink containing alc ohol? 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 Gender Identity Female 08/29/2019 4:07 PM CDT Sexual Orientation Not on file Last Filed Vital Signs Vital Sign Reading Time Taken Comments Blood Pressure - - Pulse - - Temperature - - Respiratory Rate - - Oxygen Saturation - - Inhaled Oxygen Concentration - - Weight 77.1 kg (170 lb) 11/10/2019 12:41 PM CDT pt reported Height 152.4 cm (5') 11/10/2019 12:41 PM CDT Body Mass Index 33.2 11/10/2019 12:41 PM CDT Plan of Treatment Upcoming Encounters Date Type Department Care Team (Late st Contact Info) Description 11/15/2024 10:30 AM CDT Hospital Encounter [address] [address] Aleida Hernandez MD [address] [place] [address] 11/15/2024 10:30 AM CDT - 11/15/2024 11:00 AM CDT Surgery [address] [address] Aleida Hernandez MD [address] [place] [address] COLONOSCOPY Scheduled Procedures Name Priority Associated Diagnoses Date/Ti me COLONOSCOPY Personal history of colonic polyps Encounter for screening colonoscopy 11/15/2024 10:30 AM CDT Procedures Procedure Name Priority Date/Time Associated Diagnosis Comments SCREENING MAMMOGRAM BILATERAL W GUSTAVO Schedule Routine, Read Routine (OP Routine) 09/09/2023 12:53 PM CDT Screening mammogram, encounter for COLONOSCOPY REPORT 03/04/2017 from Last 3 Months or Most Recently Relevant to Health Maintenance Results * Screening Mammogram Bilateral W Gustavo (09/09/2023 12:53 PM CDT) Anatomical Region Laterality Modality Breast Bilateral Mammography Narrative 09/10/2023 3:42 PM CDT Mammogram Technique: Bilateral Digital Breast Tomosynthesis, Bilateral C-view 2D Screening mammogram. Views obtained: bilateral craniocaudal and bilateral mediolateral oblique. Computer Aided Detection was performed. Mammogram Findings: The present examination has been compared to prior imaging studies performed at [facility] on 09/17/2021, and at an outside location on 05/27/2018 and 07/11/2019. There are scattered areas of fibroglandular density. There are calcifications in both breasts. Impression: Calcifications in both breasts are benign. Annual screening mammography is recommended. OVERALL FINAL ASSESSMENT: BI-RADS CATEGORY 2: Benign. Procedure Note Tisha Adams MD - 09/10/2023 Mammogram Technique: Bilateral Digital Breast Tomosynthesis, Bilateral C-view 2D Screening mammogram. Views obtained: bilateral craniocaudal and bilateral mediolateral oblique. Computer Aided Detection was performed. Mammogram Findings: The present examination has been compared to prior imaging studies performed at [facility] on 09/17/2021, and at an outside location on 05/27/2018 and 07/11/2019. There are scattered areas of fibroglandular density. There are calcifications in both breasts. Impression: Calcifications in both breasts are benign. Annual screening mammography is recommended. OVERALL FINAL ASSESSMENT: BI-RADS CATEGORY 2: Benign. us Self Screening Mammogram IMG MAMMO PROCEDURES Fi nal Result * COLONOSCOPY REPORT (03/04/2017) Anatomical Region Laterality Modality Other us Provider Scanning GI PROCEDURE ORDERABLES Final Result from Last 3 Months or Most Recently Relevant to Health Maintenance Insurance [facility] [employer] [facility] [employer] [facility] [employer] Care Teams Channel Man Relationship Specialty Start Date End Date Waqar Armstrong MD [address] [place], [place] [id number] PCP - General 03/04/17
--- OUTSIDE RECORDS SUMMARY | 2024-09-07 11:16 | XMS_ITS | Clinical Summary ---
Author Organization [facility] Address [address] [place] [address] Care Team Providers Care Operating Room Surgical Technician Name Role Phone Waqar Armstrong MD Primary Care Provider [phone] Allergies Active Allergy Reactions Criticality Noted Date [...] mcg tablet Take 88 mcg by mouth emergency response technician before breakfast Active pantoprazole DR (PROTONIX) 20 mg EC tablet Take 20 mg by mouth daily Active triamterene-hyd roCHLOROthiazid e (triamterene-hy droCHLOROthiazi de) 37.5-25 mg per tablet/capsule Take 1 tablet/capsule by mouth daily Active Active Problems Problem Noted Date Diagnosed Date Personal history of colonic polyps 10/02/2020 Overview (10/02/2020): Added automatically from request for surgery [id number] Encounter for screening colonoscopy 10/02/2020 Overview (10/02/2020): Added automatically from request for surgery [id number] Encounters Date Type Department Care Team Description 09/06/[address] [facility] Gastroenterology at [address] [place] [address] Aleida Hernandez MD 08/31/[address] [facility] Gastroenterology at [address] [place] [phone] Esther Singleton from Last 3 Months Surgical History Surgery Date Site/Laterality Comments TONSILLECTOMY THYROIDECTOMY SECTION CHOLECYSTECTOMY HYSTERECTOMY Medical History Medical History Date Comments Hypertension Arthritis Respiratory abnormalities Asthma Family History Medical History Relation Name Comments Lung cancer Father Lung cancer Paternal Grandfather 55-60 Relation Name Status Comments Father Paternal Grandfather Social History Tobacco Use Types Packs/Day Years [...] on file 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 Gender Identity Female 08/29/2019 4:07 PM CDT Sexual Orientation Not on file Obstetrics History Last Filed Vital Signs Vital Sign Reading [...] Description 11/15/2024 10:30 AM CDT Hospital Encounter [facility] [address] [place] [address] Aleida Hernandez MD [address] [place] [address] 11/15/2024 10:30 AM CDT - 11/15/2024 11:00 AM CDT Surgery [facility] [address] [place] [address] Aleida Hernandez MD [address] [place] [address] [place] [address] COLONOSCOPY Scheduled Procedures Name Priority Associated Diagnoses Date/Ti me COLONOSCOPY Personal history of colonic polyps Encounter for screening colonoscopy 11/15/2024 10:30 AM CDT Health Maintenance Due Date Last Done Comments Depression Screening 1945 Fall Risk Assessment 1945 Hepatitis C Screening 1945 Osteoporosis Screening-Bone Density Scan 1945 Hepatitis B Screening 1964 Zoster Vaccine (1 of 2) 1996 Well Visit 65+ 11/12/2011 DTaP/Tdap/Td Vaccine (2 - Td or Tdap) 12/30/2020 12/30/2010 Influenza Vaccine (Season Ended) 2025 03/08/2019, 03/17/2018, 05/02/2017, Additional history exists Pneumococcal vaccine 65+ Completed 016, 03/17/2016, 01/01/2015, Additional history exists Colon Cancer Screening-CT Colonography Discontinued 03/04/2017 Colon Cancer Screening-Colonoscopy Discontinued 03/04/2017 Colon Cancer Screening-DNA Stool Discontinued 03/04/20 Colon Cancer Screening-FIT Discontinued 03/04/2017 Colon Cancer Screening-FOBT Discontinued 03/04/2017 Colon Cancer Screening-Sigmoidoscopy Discontinued 03/04/2017 Colorectal Cancer Screening Discontinued Breast Cancer Screening-Mammogram Discontinued 024, 09/17/2021 Procedures Procedure Name Priority Date/Time Associated Diagnosis [...] compared to prior imaging studies performed at [facility] on 09/17/2021, and at [...] compared to prior imaging studies performed at [facility] on 09/17/2021, and at [...] Most Recently Relevant to Health Maintenance [facility] [employer] Care Teams Operating Room Surgical Technician Relationship Specialty Start Date End Date Waqar Armstrong MD [address] [place] [address] PCP - General 03/04/17
--- OUTSIDE RECORDS SUMMARY | 2024-09-07 11:16 | XMS_ITS | Encounter Summary ---
Author Organization [facility] Address [address] [place] [address] Care Team Providers Care Normalizer Name Role Phone Waqar Armstrong MD Primary Care Provider Encounter Details Date Type Department Care Team (Late st Contact Info) Description 04/12/2008 Orders Only [facility] Health Information Management [address] [place] [address] Scanning, Provider Social History Tobacco Use Types Packs/Day Years Used Date Smoking Tobacco: Never Assessed Comments Unknown Sex and Gender Information Value Date Recorded Sex Assigned at Not on file 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 Gender Identity Female 08/29/2019 4:07 PM CDT Sexual Orientation Not on file documented as of this encounter Plan of Treatment Upcoming Encounters Date Type Department Care Team (Late st Contact Info) Description 11/15/2024 10:30 AM CDT Hospital Encounter [address] [address] Aleida Hernandez MD [address] [place] [address] DR PE[address]A [address] [place] [id number] 11/15/2024 10:30 AM CDT - 11/15/2024 11:00 AM CDT Surgery [address] [address] Aleida Hernandez MD [address] [place] [address] [place] [address] COLONOSCOPY Scheduled Procedures Name Priority Associated Diagnoses Date/Ti me COLONOSCOPY Personal history of colonic polyps Encounter for screening colonoscopy 11/15/2024 10:30 AM CDT documented as of this encounter Procedures Procedure Name Priority Date/Time Associated Diagnosis Comments GI - RESULT 04/12/2008 documented in this encounter Results * GI - RESULT (04/12/2008) Anatomical Region Laterality Modality Other us Provider Scanning Final Result documented in this encounter Visit Diagnoses Not on filedocumented in this encounter Care Teams Normalizer Relationship Specialty Start Date End Date Waqar Armstrong MD [address] [place] [address] PCP - General 03/04/17 documented as of this encounter
--- OUTSIDE RECORDS SUMMARY | 2024-09-07 11:16 | XMS_ITS | Encounter Summary ---
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 * Telephone Encounter - Patricia Roldan LPN - 09/06/2024 12:05 PM CDT PT has been rescheduled for colonoscopy form 10/05/24 to 11-15-24 at 1030am with adding anEGD to procedure documented in this encounter Plan of Treatment Upcoming Encounters Date Type Department Care Team (Late st Contact Info) Description 11/15/2024 10:30 AM CDT Hospital Encounter [address] [address] Aleida Hernandez MD [address] [place] [address] DR PE[address]A [address] [place] [address] 11/15/2024 10:30 AM CDT - 11/15/2024 11:00 AM CDT Surgery [address] [address] Aleida Hernandez MD [address] [place] [address] DR PE[address]A [address] [place] [address] COLONOSCOPY Scheduled Procedures Name Priority Associated Diagnoses Date/Ti me COLONOSCOPY Personal history of colonic polyps Encounter for screening colonoscopy 11/15/2024 10:30 AM CDT documented as of this encounter Visit Diagnoses Not on filedocumented in this encounter Care Teams Planer Tailer Relationship Specialty Start Date End Date Waqar Armstrong MD [address] [place] [address] PCP - General 03/04/17 documented as of this encounter
--- OUTSIDE RECORDS SUMMARY | 2024-09-07 11:16 | XMS_ITS | Encounter Summary ---
Author Organization [facility] Medical Group Address [address] [facility] [address] [place] [address] Care Team Providers Care Online Advertising Manager Name Role Phone Waqar Armstrong MD Primary Care Provider Encounter Details Date Type Department Care Team (Late st Contact Info) Description 08/08/2015 [place] [facility] [place] [address] [place] [address] Scanning, Provider Social History Tobacco Use Types Packs/Day Years Used Date Smoking Tobacco: Never Assessed Comments Unknown Sex and Gender Information Value Date Recorded Sex Assigned at Not on file Legal Sex Female 4:00 PM IDEA MAN Gender Identity Female 08/29/2019 4:07 PM CDT Sexual Orientation Not on file documented as of this encounter Plan of Treatment Upcoming Encounters Date Type Department Care Team (Late st Contact Info) Description 11/15/2024 10:30 AM CDT Hospital Encounter [address] [address] Aleida Hernandez MD [address] [place] [address] DR PE[address]A [address] [place] [address] 11/15/2024 10:30 AM CDT - 11/15/2024 11:00 AM CDT Surgery [address] [address] Aleida Hernandez MD [address] [place] [address] [place] [address] COLONOSCOPY Scheduled Procedures Name Priority Associated Diagnoses Date/Ti me COLONOSCOPY Personal history of colonic polyps Encounter for screening colonoscopy 11/15/2024 10:30 AM CDT documented as of this encounter Procedures Procedure Name Priority Date/Time Associated Diagnosis Comments GI - RESULT 08/08/2015 SCAN - PATHOLOGY 08/08/2015 documented in this encounter Results * SCAN - PATHOLOGY (08/08/2015) us Provider Scanning Final Result * GI - RESULT (08/08/2015) Anatomical Region Laterality Modality Other us Provider Scanning Final Result documented in this encounter Visit Diagnoses Not on filedocumented in this encounter Care Teams Online Advertising Manager Relationship Specialty Start Date End Date Waqar Armstrong MD [address] [place] [address] PCP - General 03/04/17 documented as of this encounter
--- OUTSIDE RECORDS SUMMARY | 2024-09-07 11:16 | XMS_ITS | Encounter Summary ---
Author Organization [facility] Medical Group Address [address] [facility] [address] [place] [address] Care Team Providers Care Sports Management Intern Name Role Phone Waqar Armstrong MD Primary Care Provider [phone] Encounter Details Date Type Department Care Team (Late st Contact Info) Description 07/04/2015 [place] [facility] [place] [address] [place] [address] Scanning, Provider Social History Tobacco Use Types Packs/Day Years Used Date Smoking Tobacco: Never Assessed Comments Unknown Sex and Gender Information Value Date Recorded Sex Assigned at Not on file 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 Gender Identity Female 08/29/2019 4:07 PM CDT Sexual Orientation Not on file documented as of this encounter Plan of Treatment Upcoming Encounters Date Type Department Care Team (Late st Contact Info) Description 11/15/2024 10:30 AM CDT Hospital Encounter [address] [address] Aleida Hernandez MD [address] [place] [address] DR PE[address]A [address] [place] [address] 11/15/2024 10:30 AM CDT - 11/15/2024 11:00 AM CDT Surgery [address] [address] Aleida Hernandez MD [address] [place] [address] [place] [address] COLONOSCOPY Scheduled Procedures Name Priority Associated Diagnoses Date/Ti me COLONOSCOPY Personal history of colonic polyps Encounter for screening colonoscopy 11/15/2024 10:30 AM CDT documented as of this encounter Procedures Procedure Name Priority Date/Time Associated Diagnosis Comments SCAN - LABS 07/04/2015 documented in this encounter Results * SCAN - LABS (07/04/2015) us Provider Scanning Final Result documented in this encounter Visit Diagnoses Not on filedocumented in this encounter Care Teams Sports Management Intern Relationship Specialty Start Date End Date Waqar Armstrong MD [address] [place] [address] PCP - General 03/04/17 documented as of this encounter
--- OUTSIDE RECORDS SUMMARY | 2024-09-07 11:16 | XMS_ITS | Clinical Summary ---
Author Organization [facility] Address [address] [place] [address] Care Team Providers Care Advertising Agency Manager Name Role Phone Unavailable Primary Care Provider Unavailabl e Social History Tobacco Use Types Packs/Day Years Used Date Smoking Tobacco: Never Assessed Comments Unknown Sex and Gender Information Value Date Recorded Sex Assigned at Not on file Legal Sex Female 9:23 PM CDT Gender Identity Not on file Sexual Orientation Not on file Last Filed Vital Signs Vital Sign Reading Time Taken Comments Blood Pressure 144/82 05/06/2016 1:02 PM MANAGER CREDIT COLLECTIONS Pulse 104 05/06/2016 1:02 PM MANAGER CREDIT COLLECTIONS Temperature - - Respiratory Rate - - Oxygen Saturation - - Inhaled Oxygen Concentration - - Weight 81.6 kg (180 lb) 05/06/2016 1:02 PM MANAGER CREDIT COLLECTIONS Height 152.4 cm (5') 05/06/2016 1:02 PM MANAGER CREDIT COLLECTIONS Body Mass Index 35.15 05/06/2016 1:02 PM MANAGER CREDIT COLLECTIONS Plan of Treatment Health Maintenance Due Date Last Done Comments Hepatitis C 1963 DTaP, Tdap and Td Vaccines ( 1 - Tdap) 1965 Zoster Vaccines (1 of 2) 1996 Dexa Scan (General) 11/12/2011 RSV Immunization or 60+ Years (1 - 1-dose 75+ series) 2021 COVID-19 Vaccine ( - 2023-2 5 season) 2024 Colorectal Cancer Screening Colonoscopy (10 Years) Discontinued Pneumococcal Vaccine: 65+ Years Completed 04/14/2016, 01/01/2015 Meningococcal B Vaccine Aged Out No l onger eligible based on patient's age to complete this topic Meningococcal Vaccine Aged Out No beau andrei eligible based on patient's age to complete this topic RSV Immunizations Under 20 Months Aged Out No longer eligible based on patient's age to complete this topic Procedures Procedure Name Priority Date/Time Associated Diagnosis Comments COLONOSCOPY Routine MANAGER CREDIT COLLECTIONS from Last 3 Months or Most Recently Relevant to Health Maintenance Results * Colonoscopy ( MANAGER CREDIT COLLECTIONS) Narrative [facility] TO EPIC CONVERSION - MANAGER CREDIT COLLECTIONS Documented hx of procedure Procedure Note , Generic Conversion, - 04/04/2018 Documented hx of procedure us Generic Conversion Md DE LEON GI PROCEDURE ORDERABLES Final Result [facility] TO EPIC CONVERSION from Last 3 Months or Most Recently Relevant to Health Maintenance
== END 2024-09-07 10:00 | disposition home or self-care (01) ==
PROVIDERS: PCP Internal Medicine; Visit Provider Internal Medicine
DX: R10.11 Right upper quadrant pain (principal); R10.13 Epigastric pain; R74.01 Elevation of levels of liver transaminase levels; Z90.49 Acquired absence of other specified parts of digestive tract
CPT/HCPCS: 76705

== ENCOUNTER 2024-09-12 12:46 | Outpatient (CLI) | payer MEDICARE, SELFPAY ==
--- NOTE | ~2024-09-12 | DEXA_ITS ---
Bone Density Report Name: KAYA PEREZ Age: 78 Sex: Female Ethnicity: White Date of : 1945 Indication: monitoring treatment; Referring Provider: EULLAIA HERRING Study: Bone densitometry was performed. Exam Date: September 12, 2024 Accession number: [id number] Bone Density: Region BMD T-score Z-score Classification Femoral Neck (Left) 0.647 -1.8 0.4 Osteopenia Total Hip (Left) 0.895 -0.4 1.6 Normal Femoral Neck (Right) 0.663 -1.7 0.5 Osteopenia Total Hip (Right) 0.850 -0.8 1.2 Normal Femoral Neck Mean 0.655 -1.7 0.5 Osteopenia Total Hip Mean 0.873 -0.6 1.4 Normal World Health Organization criteria for BMD impression classify patients as: Normal (T-score at or above -1.0), Osteopenia (T-score between -1.0 and -2.5), or Osteoporosis (T-score at or below -2.5). 10-year Fracture Risk: FRAX not reported because: Treated for osteoporosis Previous Exams: Region Exam Age BMD T-score BMD Change BMD Change Date g/cm2 vs Baseline vs Previous Total Hip(Left) 09/12/2024 78 0.895 -0.4 0.027 (3.2%)* 0.027 (3.2%)* 11/20/2021 76 0.868 -0.6 Total Hip(Right) 09/12/2024 78 0.850 -0.8 -0.009 (-1.0%) -0.009 (-1.0%) 11/20/2021 76 0.859 -0.7 *Denotes significance at 95% confidence level, LSC for Total Hip = 0.027 g/cm2 Clinical Information Provided by Patient: Is being treated for osteoporosis Has used the following medications: Vitamin D Patient maximum height was 59 Menopause Age: 56 No regular weight bearing exercise Drinks caffeinated beverages Onset of menses at age 13 Number of children 1 Impression: The patient has low bone mass, based on the Left Femoral Neck T-score. No significant bone loss was observed. Discussion: PATIENT UNDER TREATMENT WITH NO SIGNIFICANT BMD LOSS SINCE LAST EXAM. In an untreated patient, BMD typically declines with age. A lack of decline or gain is usually a sign that treatment is efficacious and fracture risk is reduced. It is important to ask patients whether they are taking their medications and to encourage continued and appropriate compliance with their osteoporosis therapies to reduce fracture risk. It is also important to review their risk factors and encourage appropriate calcium and vitamin D intakes, exercise, fall prevention and other lifestyle measures. Follow-Up: Consider a repeat BMD and Vertebral Fracture Assessment (VFA) exam in 2 years or sooner if medically necessary, to reassess this patient's status. Reported by: JUVENCIO on 09/12/2024 1:43:00 PM. Reviewed, dictated and finalized at location A.
--- NOTE | ~2024-09-12 | MM_ITS ---
EXAMINATION: MM screening magdalena BI w preeti HISTORY: Screening TECHNIQUE: Craniocaudal and mediolateral oblique 3-D tomosynthesis images were obtained and synthetic 2-D images were generated. CAD analysis was submitted and interpreted. COMPARISON: Comparison to multiple prior studies sequentially, with oldest reviewed study dated 05/01. BREAST PARENCHYMAL COMPOSITION: Dense: The breasts are heterogeneously dense, which may obscure small masses FINDINGS: The right breast is stable without evidence for malignancy. There are benign asymmetries an d right breast calcifications. There is a developing mass in the lower outer quadrant of the left quincy ast, posterior third. IMPRESSION: 1. Developing left breast mass. 2. Additional mammographic views and possible breast ultrasound are recommended. BI-RADS Category 0: Incomplete: Needs additional imaging evaluation. Reviewed, dictated and finalized at location B. IMPRESSION: 1. Developing left breast mass. 2. Additional mammographic views and possible breast ultrasound are recommended . BI-RADS Category 0: Incomplete: Needs additional imaging evaluation.
--- OUTSIDE RECORDS SUMMARY | 2024-09-12 13:57 | XMS_ITS | Encounter Summary ---
Author Organization [facility] Medical Group Address [address] [facility] [address] [place] [address] Care Team Providers Care Metal Polisher And Buffer Apprentice Name Role Phone Waqar Armstrong MD Primary Care Provider Encounter Details Date Type Department Care Team (Late st Contact Info) Description 08/08/2015 Orders Only [facility] [place] Management [address] [place] [address] Scanning, Provider Social History Tobacco Use Types Packs/Day Years Used Date Smoking Tobacco: Never Assessed Comments Unknown Sex and Gender Information Value Date Recorded Sex Assigned at Not on file 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 Female 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 Gender Identity Female 08/29/2019 4:07 PM CDT Sexual Orientation Not on file documented as of this encounter Plan of Treatment Upcoming Encounters Date Type Department Care Team (Late st Contact Info) Description 11/15/2024 10:30 AM CDT Hospital Encounter [address] [address] Aleida Hernandez MD [address] [place] [address] DR PE[address]A [address] [place] [address] 11/15/2024 10:30 AM CDT - 11/15/2024 11:00 AM CDT Surgery [address] [address] Aleida Hernandez MD [address] [place] [address] [place] [address] COLONOSCOPY Scheduled Procedures Name Priority Associated Diagnoses [...] on filedocumented in this encounter Care Teams Metal Polisher And Buffer Apprentice Relationship Specialty Start Date End Date Waqar Armstrong MD [address] [place] [address] PCP - General 03/04/17 documented as of this encounter
--- OUTSIDE RECORDS SUMMARY | 2024-09-12 13:57 | XMS_ITS | Encounter Summary ---
Author Organization [facility] Medical Group Address [address] [facility] [address] [place] [address] Care Team Providers Care Hospice Plan Administrator Name Role Phone Waqar Armstrong MD Primary Care Provider Encounter Details Date Type Department Care Team (Late st Contact Info) Description 04/12/2008 Orders Only [facility] [place] Management [address] [place] [address] Scanning, Provider Social History Tobacco Use Types Packs/Day Years Used Date Smoking Tobacco: Never Assessed Comments Unknown Sex and Gender Information Value Date Recorded Sex Assigned at Not on file Legal Sex Female 4:00 PM LEARNING PROGRAM MANAGER Gender Identity Female 08/29/2019 4:07 PM CDT Sexual Orientation Not on file documented as of this encounter Plan of Treatment Upcoming Encounters Date Type Department Care Team (Late st Contact Info) Description 11/15/2024 10:30 AM CDT Hospital Encounter [address] [address] Aleida Hernandez MD [address] [place] [address] DR PEÑA [address] [place] [address] 11/15/2024 10:30 AM CDT - 11/15/2024 11:00 AM CDT Surgery [address] [address] Aleida Hernandez MD [address] [place] [address] [place] [address] COLONOSCOPY Scheduled Procedures Name Priority Associated Diagnoses [...] on filedocumented in this encounter Care Teams Hospice Plan Administrator Relationship Specialty Start Date End Date Waqar Armstrong MD [address] [place] [address] PCP - General 03/04/17 documented as of this encounter
--- OUTSIDE RECORDS SUMMARY | 2024-09-12 13:57 | XMS_ITS | Clinical Summary ---
Author Organization [facility] Address [address] [place] [address] Care Team Providers Care Department Store Manager Name Role Phone Unavailable Primary Care [...] Comments Blood Pressure 144/82 05/06/2016 1:02 PM CRAYON PAINTER Pulse 104 05/06/2016 1:02 PM CRAYON PAINTER Temperature - - Respiratory Rate - - Oxygen Saturation - - Inhaled Oxygen Concentration - - Weight 81.6 kg (180 lb) 05/06/2016 1:02 PM CRAYON PAINTER Height 152.4 cm (5') 05/06/2016 1:02 PM CRAYON PAINTER Body Mass Index 35.15 05/06/2016 1:02 PM CRAYON PAINTER Plan of Treatment Health Maintenance Due Date Last Done Comments Hepatitis C 1963 DTaP, Tdap and Td Vaccines ( 1 - Tdap) 1965 Zoster Vaccines (1 of 2) 1996 Dexa Scan (General) 11/12/2011 RSV Immunization or 60+ Years (1 - 1-dose 75+ series) 2021 COVID-19 Vaccine ( - 2023-2 5 season) 2024 Colorectal Cancer Screening Colonoscopy (10 Years) Discontinued Pneumococcal Vaccine: 50+ Years Completed 04/14/2016, 01/01/2015 Meningococcal B Vaccine [...] Priority Date/Time Associated Diagnosis Comments COLONOSCOPY Routine CRAYON PAINTER from Last 3 Months or Most Recently Relevant to Health Maintenance Results * Colonoscopy ( CRAYON PAINTER) Narrative [facility] TO EPIC CONVERSION - CRAYON PAINTER Documented hx of procedure Procedure Note , Generic Conversion, - 04/04/2018 Documented hx of procedure us Generic Conversion Md DE LEON GI PROCEDURE ORDERABLES Final Result [facility] TO EPIC CONVERSION from Last 3 Months or Most Recently Relevant to Health Maintenance
--- OUTSIDE RECORDS SUMMARY | 2024-09-12 13:57 | XMS_ITS | Encounter Summary ---
Author Organization [facility] Medical Group Address [address] [facility] [address] [place] [address] Care Team Providers Care Hose Wrapper Name Role Phone Waqar Armstrong MD Primary Care Provider Encounter Details Date Type Department Care Team (Late st Contact Info) Description 03/13/2008 Orders Only [facility] [place] [address] [place] [address] Scanning, Provider Social History Tobacco Use Types Packs/Day Years Used Date Smoking Tobacco: Never Assessed Comments Unknown Sex and Gender Information Value Date Recorded Sex Assigned at Not on file Legal Sex Female 4:00 PM FRENCH DRAWER Gender Identity Female 08/29/2019 4:07 PM CDT Sexual Orientation Not on file documented as of this encounter Plan of Treatment Upcoming Encounters Date Type Department Care Team (Late st Contact Info) Description 11/15/2024 10:30 AM CDT Hospital Encounter [address] [address] Aleida Hernandez MD [address] [place] [address] DR PE[address]A [address] [place] [address] 11/15/2024 10:30 AM CDT - 11/15/2024 11:00 AM CDT Surgery [address] [address] Aleida Hernandez MD [address] [place] [address] [place] [address] COLONOSCOPY Scheduled Procedures Name Priority Associated Diagnoses [...] on filedocumented in this encounter Care Teams Hose Wrapper Relationship Specialty Start Date End Date Waqar Armstrong MD [address] [place] [address] PCP - General 03/04/17 documented as of this encounter
--- OUTSIDE RECORDS SUMMARY | 2024-09-12 13:57 | XMS_ITS | Encounter Summary ---
Author Organization [facility] Medical Group Address [address] [facility] [address] [place] [address] Care Team Providers Care Ciso Name Role Phone Waqar Armstrong MD Primary Care Provider [phone] Encounter Details Date Type Department Care Team (Late st Contact Info) Description 07/04/2015 Orders Only [facility] [place] Health Information Management [address] [place] [address] Scanning, Provider Social History Tobacco Use Types Packs/Day Years Used Date Smoking Tobacco: Never Assessed Comments Unknown Sex and Gender Information Value Date Recorded Sex Assigned at Not on file Legal Sex Female 4:00 PM PIPING DRAFTER Gender Identity Female 08/29/2019 4:07 PM CDT Sexual Orientation Not on file documented as of this encounter Plan of Treatment Upcoming Encounters Date Type Department Care Team (Late st Contact Info) Description 11/15/2024 10:30 AM CDT Hospital Encounter [address] [address] Aleida Hernandez MD [address] [place] [address] DR PE[address]A [address] [place] [address] 11/15/2024 10:30 AM CDT - 11/15/2024 11:00 AM CDT Surgery [address] [address] Aleida Hernandez MD [address] [place] [address] [place] [address] COLONOSCOPY Scheduled Procedures Name Priority Associated Diagnoses [...] on filedocumented in this encounter Care Teams Ciso Relationship Specialty Start Date End Date Waqar Armstrong MD [address] [place] [address] PCP - General 03/04/17 documented as of this encounter
--- OUTSIDE RECORDS SUMMARY | 2024-09-12 13:57 | XMS_ITS | Referral Summary ---
Author Organization [facility] Address [address] [place] [address] Care Team Providers Care Managing Editor Name Role Phone Waqar Armstrong MD Primary Care Provider [phone] Encounters Date Type Department Care Team Description 09/06/2024 Telephone [facility] Gastroenterology at [address] [place] [phone] Aleida Hernandez MD 08/31/2024 Telephone [facility] Gastroenterology at [address] [place] [address] Esther Singleton from Last 3 [...] mcg tablet Take 88 mcg by mouth full charge bookkeeper before breakfast Active pantoprazole DR (PROTONIX) 20 mg EC tablet Take 20 mg by mouth daily Active triamterene-hyd roCHLOROthiazid e (triamterene-hy droCHLOROthiazi de) 37.5-25 mg per tablet/capsule Take 1 tablet/capsule by mouth daily Active Active Problems Problem Noted Date Diagnosed Date Personal history of colonic polyps 10/02/2020 Overview (10/02/2020): Added automatically from request for surgery [id number] Encounter for screening colonoscopy 10/02/2020 Overview (10/02/2020): Added automatically from request for surgery [id number] Social History Tobacco Use Types Packs/Day Years [...] on file 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 Female 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 BEE ROBBER Gender Identity Female 08/29/2019 4:07 PM CDT [...] Description 11/15/2024 10:30 AM CDT Hospital Encounter [address] [address] Aleida Hernandez MD [address] [facility] [facility] [facility] [place] [address] 11/15/2024 10:30 AM CDT - 11/15/2024 11:00 AM CDT Surgery [address] [address] Aleida Hernandez MD [address] [place] [address] COLONOSCOPY Scheduled Procedures Name Priority Associated Diagnoses [...] compared to prior imaging studies performed at [facility] on 09/17/2021, and at an outside [...] compared to prior imaging studies performed at [facility] on 09/17/2021, and at an outside [...] Most Recently Relevant to Health Maintenance Insurance [facility] [employer] [facility] [employer] [facility] [employer] Care Teams Managing Editor Relationship Specialty Start Date End Date Waqar Armstrong MD [address] [place], [place] [id number] PCP - General 03/04/17
--- OUTSIDE RECORDS SUMMARY | 2024-09-12 13:57 | XMS_ITS | Clinical Summary ---
Author Organization [facility] Address [address] [place] [address] Care Team Providers Care Bridge Ironworker Helper Name Role Phone Waqar Armstrong MD Primary Care Provider [phone] Allergies Active Allergy Reactions Criticality Noted Date [...] mcg tablet Take 88 mcg by mouth revising clerk before breakfast Active pantoprazole DR (PROTONIX) 20 mg EC tablet Take 20 mg by mouth daily Active triamterene-hyd roCHLOROthiazid e (triamterene-hy droCHLOROthiazi de) 37.5-25 mg per tablet/capsule Take 1 tablet/capsule by mouth daily Active Active Problems Problem Noted Date Diagnosed Date Personal history of colonic polyps 10/02/2020 Overview (10/02/2020): Added automatically from request for surgery [id number] Encounter for screening colonoscopy 10/02/2020 Overview (10/02/2020): Added automatically from request for surgery [id number] Encounters Date Type Department Care Team Description 09/06/2024 Telephone [facility] Gastroenterology at [address] [place] [address] Aleida Hernandez MD 08/31/2024 Telephone [facility] Gastroenterology at [address] [place] [phone] Esther Singleton from Last 3 Months Surgical [...] on file Legal Sex Female 4:00 PM PUBLIC ADDRESS ANNOUNCER Gender Identity Female 08/29/2019 4:07 PM CDT [...] Description 11/15/2024 10:30 AM CDT Hospital Encounter [facility] [address] [place] [address] Aleida Hernandez MD [address] [place] [address] 11/15/2024 10:30 AM CDT - 11/15/2024 11:00 AM CDT Surgery [facility] [address] [place] [address] Aleida Hernandez MD [address] [place] [address] [place] [address] COLONOSCOPY Scheduled Procedures Name Priority Associated Diagnoses [...] compared to prior imaging studies performed at [facility] on 09/17/2021, and at an outside location [...] compared to prior imaging studies performed at [facility] on 09/17/2021, and at an outside location [...] Recently Relevant to Health Maintenance Insurance [facility] Care Teams Bridge Ironworker Helper Relationship Specialty Start Date End Date Waqar Armstrong MD [address] [place] [address] PCP - General 03/04/17
== END 2024-09-12 12:47 | disposition home or self-care (01) ==
PROVIDERS: PCP Internal Medicine; Visit Provider Internal Medicine
DX: Z12.31 Encounter for screening mammogram for malignant neoplasm of breast (principal); Z78.0 Asymptomatic menopausal state; M85.89 Other specified disorders of bone density and structure, multiple sites; R92.8 Other abnormal and inconclusive findings on diagnostic imaging of breast
CPT/HCPCS: 77063; 77067; 77080

== ENCOUNTER 2024-09-27 09:30 | Outpatient (CLI) | payer MEDICARE, SELFPAY ==
--- NOTE | ~2024-09-27 | MMUS_ITS ---
EXAMINATION: MM diagnostic magdalena LT w preeti, US breast LT complete HISTORY: Left breast mass TECHNIQUE: Additional 3-D tomosynthesis images of the left breast were performed and synthetic 2-D im ages were generated. CAD analysis was submitted and interpreted. High resolution limited left breast ultrasound was performed. COMPARISON: 09/12/2024, 09/09/2023, 09/17/2021 BREAST PARENCHYMAL COMPOSITION:Dense: The breasts are heterogeneously dense, which may obscure small masses. FINDINGS: MAMMOGRAPHIC FINDINGS: Mass at the posterior, slightly outer, slightly lower left breast is increased in size from prior exa m, measuring 9 mm in diameter. Extensive benign calcifications are unchanged. ULTRASOUND: At the 4:00 position left breast, 9 cm from the nipple, there is a minimally complex 7 mm cyst with f ocal low-level internal echoes. IMPRESSION: 7 mm mildly complex cyst in the left breast, as detailed above. Six-month follow-up ultrasound recomm ended to reassess. BI-RADS category 3, probably benign findings. Reviewed, dictated and finalized at location M. IMPRESSION: 7 mm mildly complex cyst in the left breast, as detailed above. Six-month follo w-up ultrasound recommended to reassess. BI-RADS category 3, probably benign findings.
--- OUTSIDE RECORDS SUMMARY | 2024-09-27 10:23 | XMS_ITS | Encounter Summary ---
Author Organization [facility] Address [address] [place] [address] Care Team Providers Care Plastic Tubing Insulation Supervisor Name Role Phone Waqar Armstrong MD Primary Care Provider Encounter Details Date Type Department Care Team (Late st Contact Info) Description 07/04/[address] 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 Gender Identity Female 08/29/2019 4:07 PM CDT Sexual Orientation Not on file documented as of this encounter Plan of Treatment Upcoming Encounters Date Type Department Care Team (Late st Contact Info) Description 11/15/2024 10:30 AM CDT Hospital Encounter [address] [address] Aleida Hernandez MD [address] [place] [address] DR PE[address]A [address] [place] [address] 11/15/2024 10:30 AM CDT - 11/15/2024 11:00 AM CDT Surgery [address] [address] Aleida Hernandez MD [address] [place] [address] [place] [address] COLONOSCOPY Scheduled Procedures Name Priority Associated Diagnoses [...] on filedocumented in this encounter Care Teams Plastic Tubing Insulation Supervisor Relationship Specialty Start Date End Date Waqar Armstrong MD [address] [place] [address] PCP - General 03/04/17 documented as of this encounter
--- OUTSIDE RECORDS SUMMARY | 2024-09-27 10:23 | XMS_ITS | Clinical Summary ---
Author Organization [facility] Address [address] [place] [address] Care Team Providers Care Disaster Director Name Role Phone Waqar Armstrong MD Primary Care Provider + [phone] Allergies Active Allergy Reactions Criticality Noted Date [...] mcg tablet Take 88 mcg by mouth chemical manager before breakfast Active pantoprazole DR (PROTONIX) 20 mg EC tablet Take 20 mg by mouth daily Active triamterene-hyd roCHLOROthiazid e (triamterene-hy droCHLOROthiazi de) 37.5-25 mg per tablet/capsule Take 1 tablet/capsule by mouth daily Active Active Problems Problem Noted Date Diagnosed Date Personal history of colonic polyps 10/02/2020 Overview (10/02/2020): Added automatically from request for surgery [id number] Encounter for screening colonoscopy 10/02/2020 Overview (10/02/2020): Added automatically from request for surgery [id number] Encounters Date Type Department Care Team Description 09/06/2024 Telephone [facility] Gastroenterology at [address] [place] [address] Aleida Hernandez MD 08/31/2024 Telephone [facility] Gastroenterology at [address] [place] [phone] Esther Singleton from Last 3 Months Surgical [...] on file 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 Gender Identity Female 08/29/2019 4:07 PM CDT [...] Description 11/15/2024 10:30 AM CDT Hospital Encounter [facility] [address] [place] [address] Aleida Hernandez MD [address] [place] [address] 11/15/2024 10:30 AM CDT - 11/15/2024 11:00 AM CDT Surgery [facility] [address] [place] [address] Aleida Hernandez MD [address] [place] [address] [place] [address] COLONOSCOPY Scheduled Procedures Name Priority Associated Diagnoses [...] compared to prior imaging studies performed at [facility] on 09/17/2021, and at an outside location [...] compared to prior imaging studies performed at [facility] on 09/17/2021, and at an outside location [...] Recently Relevant to Health Maintenance Insurance [facility] Care Teams Disaster Director Relationship Specialty Start Date End Date Waqar Armstrong MD [address] [place] [address] PCP - General 03/04/17
--- OUTSIDE RECORDS SUMMARY | 2024-09-27 10:23 | XMS_ITS | Encounter Summary ---
Author Organization [facility] Address [address] [place] [address] Care Team Providers Care Felt Hanger Name Role Phone Waqar Armstrong MD Primary Care Provider [phone] Encounter Details Date Type Department Care Team (Late st Contact Info) Description 03/13/2008 Orders Only [facility] Health Information Management [address] [place] [address] Scanning, Provider Social History Tobacco Use Types Packs/Day Years Used Date Smoking Tobacco: Never Assessed Comments Unknown Sex and Gender Information Value Date Recorded Sex Assigned at Not on file 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 Gender Identity Female 08/29/2019 4:07 PM CDT Sexual Orientation Not on file documented as of this encounter Plan of Treatment Upcoming Encounters Date Type Department Care Team (Late st Contact Info) Description 11/15/2024 10:30 AM CDT Hospital Encounter [address] [address] Aleida Hernandez MD [address] [place] [address] DR PEÑA [address] [place] [address] 11/15/2024 10:30 AM CDT - 11/15/2024 11:00 AM CDT Surgery [address] [address] Aleida Hernandez MD [address] [place] [address] [place] [address] COLONOSCOPY Scheduled Procedures Name Priority Associated Diagnoses [...] on filedocumented in this encounter Care Teams Felt Hanger Relationship Specialty Start Date End Date Waqar Armstrong MD [address] [place] [address] PCP - General 03/04/17 documented as of this encounter
--- OUTSIDE RECORDS SUMMARY | 2024-09-27 10:23 | XMS_ITS | Referral Summary ---
Author Organization [facility] Address [address] [place] [address] Care Team Providers Care Senior Chemical Engineer Name Role Phone Waqar Armstrong MD Primary Care Provider [phone] Encounters Date Type Department Care Team Description 09/06/2024 Telephone [facility] Gastroenterology at [address] [place] [phone] Aleida Hernandez MD 08/31/2024 Telephone [facility] Gastroenterology at [address] [place] [address] Esther Singleton from Last 3 [...] mcg tablet Take 88 mcg by mouth museum educator before breakfast Active pantoprazole DR (PROTONIX) 20 mg EC tablet Take 20 mg by mouth daily Active triamterene-hyd roCHLOROthiazid e (triamterene-hy droCHLOROthiazi de) 37.5-25 mg per tablet/capsule Take 1 tablet/capsule by mouth daily Active Active Problems Problem Noted Date Diagnosed Date Personal history of colonic polyps 10/02/2020 Overview (10/02/2020): Added automatically from request for surgery [id number] Encounter for screening colonoscopy 10/02/2020 Overview (10/02/2020): Added automatically from request for surgery [id number] Social History Tobacco Use Types Packs/Day Years [...] on file 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 Gender Identity Female 08/29/2019 4:07 PM CDT [...] Description 11/15/2024 10:30 AM CDT Hospital Encounter [address] [address] Aleida Hernandez MD [address] [facility] [place] [address] 11/15/2024 10:30 AM CDT - 11/15/2024 11:00 AM CDT Surgery [address] [address] Aleida Hernandez MD [address] [facility] [place] [address] COLONOSCOPY Scheduled Procedures Name Priority Associated Diagnoses [...] compared to prior imaging studies performed at [facility] on 09/17/2021, and at an outside location [...] compared to prior imaging studies performed at [facility] on 09/17/2021, and at an outside location [...] Most Recently Relevant to Health Maintenance Insurance [facility] [employer] [facility] [employer] [facility] [employer] Care Teams Senior Chemical Engineer Relationship Specialty Start Date End Date Waqar Armstrong MD [address] [place], [place] [id number] PCP - General 03/04/17
--- OUTSIDE RECORDS SUMMARY | 2024-09-27 10:23 | XMS_ITS | Encounter Summary ---
Author Organization [facility] Address 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 Gender Identity Female 08/29/2019 4:07 PM CDT Sexual Orientation Not on file documented as of this encounter Plan of Treatment Upcoming Encounters Date Type Department Care Team (Late st Contact Info) Description 11/15/2024 10:30 AM CDT Hospital Encounter [address] [address] Aleida Hernandez MD [address] [place] [address] DR PE[address]A [address] [place] [address] 11/15/2024 10:30 AM CDT - 11/15/2024 11:00 AM CDT Surgery [address] [address] Aleida Hernandez MD [address] [place] [address] [place] [address] COLONOSCOPY Scheduled Procedures Name Priority Associated Diagnoses [...] on filedocumented in this encounter Care Teams Karate Black Belt Relationship Specialty Start Date End Date Waqar Armstrong MD [address] [place] [address] PCP - General 03/04/17 documented as of this encounter
--- OUTSIDE RECORDS SUMMARY | 2024-09-27 10:23 | XMS_ITS | Encounter Summary ---
Author Organization [facility] Address [address] [place] [address] Care Team Providers Care Zone Maintenance Technician Name Role Phone Waqar Armstrong MD Primary Care Provider [phone] Encounter Details Date Type Department Care Team (Late st Contact Info) Description 04/12/2008 Orders Only [facility] Health Information Management [address] [place] [address] Scanning, Provider Social History Tobacco Use Types Packs/Day Years Used Date Smoking Tobacco: Never Assessed Comments Unknown Sex and Gender Information Value Date Recorded Sex Assigned at Not on file 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 Female 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 Gender Identity Female 08/29/2019 4:07 PM CDT Sexual Orientation Not on file documented as of this encounter Plan of Treatment Upcoming Encounters Date Type Department Care Team (Late st Contact Info) Description 11/15/2024 10:30 AM CDT Hospital Encounter [address] [address] Aleida Hernandez MD [address] [place] [address] DR PE[address]A [address] [place] [address] 11/15/2024 10:30 AM CDT - 11/15/2024 11:00 AM CDT Surgery [address] [address] Aleida Hernandez MD [address] [place] [address] [place] [address] COLONOSCOPY Scheduled Procedures Name Priority Associated Diagnoses [...] on filedocumented in this encounter Care Teams Zone Maintenance Technician Relationship Specialty Start Date End Date Waqar Armstrong MD [address] [place] [address] PCP - General 03/04/17 documented as of this encounter
--- OUTSIDE RECORDS SUMMARY | 2024-09-27 10:23 | XMS_ITS | Clinical Summary ---
Author Organization [facility] Address [address] [place] [address] Care Team Providers Care Banana Carrier Name Role Phone Unavailable Primary Care Provider [...] Comments Blood Pressure 144/82 05/06/2016 1:02 PM WALLBOARD WORKER Pulse 104 05/06/2016 1:02 PM WALLBOARD WORKER Temperature - - Respiratory Rate - - Oxygen Saturation - - Inhaled Oxygen Concentration - - Weight 81.6 kg (180 lb) 05/06/2016 1:02 PM WALLBOARD WORKER Height 152.4 cm (5') 05/06/2016 1:02 PM WALLBOARD WORKER Body Mass Index 35.15 05/06/2016 1:02 PM WALLBOARD WORKER Plan of Treatment Health Maintenance Due Date [...] Priority Date/Time Associated Diagnosis Comments COLONOSCOPY Routine WALLBOARD WORKER from Last 3 Months or Most Recently Relevant to Health Maintenance Results * Colonoscopy ( WALLBOARD WORKER) Narrative [facility] TO EPIC CONVERSION - WALLBOARD WORKER Documented hx of procedure Procedure Note , Generic Conversion, - 04/04/2018 Documented hx of procedure us Generic Conversion Md [facility] PROCEDURE ORDERABLES Final Result [facility] TO EPIC CONVERSION from Last 3 Months or Most Recently Relevant to Health Maintenance
== END 2024-09-27 09:31 | disposition home or self-care (01) ==
PROVIDERS: PCP Internal Medicine; Visit Provider Internal Medicine
DX: R92.8 Other abnormal and inconclusive findings on diagnostic imaging of breast (principal)
CPT/HCPCS: 76641; 77061; 77065; G0279

== ENCOUNTER 2024-12-09 10:57 | Outpatient (RCR) | payer MEDICARE, SELFPAY ==
--- NOTE | 2024-12-09 11:41 | OPREHPOC ---
Outpatient Therapy Plan of Care This is a Multidisciplinary Plan of Care that may contain components documented by all disciplines (PT, OT, and ST.) PT Problem 1 PT Problem #1 Knowledge Deficit PT Goal 1 Goal / Goal Update independent and compliant with HEP Target Visit 6 PT Problem 2 PT Problem #2 Pain PT Goal 1 Goal / Goal Update patient to report no more than 4/10 pain in the lower back with ambulation and other functional activities Target Visit 12 PT Problem 3 PT Problem #3 Impaired Strength PT Goal 1 Goal / Goal Update improve bilateral hip abd strength to 4-/5 or better improve bilateral hip flex strength to 4/5 or better improve R knee strength to 5/5 Target Visit 12 PT Problem 4 PT Problem #4 Impaired Functional Mobility PT Goal 1 Goal / Goal Update patient to ambulate 6 minutes without rest or AD use for 1000ft or more oswestry to display less than 15% functional deficits patient to display 25 degrees or less from 0 hamstrings length per the 90/90 test. Target Visit 12 PT Problem 5 PT Problem #5 Impaired Range of Motion PT Goal 1 Goal / Goal Update forward active flexion to ankles lateral side bending to 30 degrees bilat Target Visit 12
--- NOTE | 2024-12-09 11:42 | PTOPEVAL1 ---
Assessment and note entered by JT File, PT Evaluation Information Assessment Status Evaluation ICD-10 Condition Codes (PT) Pain in low back M54.50,Difficulty Walking R26.2, Abnormalities of gait and mobility R26.9,Weakness R53.1 Onset 11/30/24 Subjective Information patient reports she is ok. she reports she recently had a bout of leg weakness. she reports back in [phone] she had a few back surgeries. she reports she thought she was having another issue like this now due to this being how she felt at the time she got surgery. she reports the weakness in her legs was mostly caused by low potassium. she reports this is now better, but her back hurts still. she reports she knows she has arthritis, but she is limited in walking. she reports she is not even able to walk a block or more. she reports she has no ntb in the legs. Reported Pain Level Pain Score 0: Self Report Assessment PT Clinical Summary mrs. richardson is a 79 yo woman who presents to skilled PT services for evaluation and treatment of lower back pain. 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 she displays forward flexed posture at the hips, weak bilateral hips, and deficits in activities in an erect position. continued skilled PT is indicated to improve her objective/ functional deficits and progress towards a return to her prior level functional activity performance /quality of life. her biggest goal is to be able to walk foro increased distance without severe pain in the lower back. Plan of Care Interventions Electrical Stimulation,Hot Pack/Cold Pack,Manual Therapy,Neuro Re-education,Patient/Caregiver Education,Therapeutic Activities,Therapeutic Exercise PT Services Indicated Yes Treatment Frequency and 3x weekly for 12 visits Duration These treatments will address the objective and functional deficits as defined above. The patient will be advanced safely and appropriately in order for the patient to progress towards his/her prior level of function. Additional exercises will be introduced and as well as a comprehensive home exercise program upon discharge, if needed, ?to ensure carryover of functional gains achieved in the clinic. This treatment plan has been reviewed and agreement upon by the patient.
--- NOTE | 2024-12-30 14:26 | OPREHPOC ---
Outpatient Therapy Plan of Care This is a Multidisciplinary Plan of Care that may contain components documented by all disciplines (PT, OT, and ST.) PT Problem 1 PT Problem #1 Knowledge Deficit PT Goal 1 Goal / Goal Update independent and compliant with HEP Target Visit 6 Progress Met PT Problem 2 PT Problem #2 Pain PT Goal 1 Goal / Goal Update patient to report no more than 4/10 pain in the lower back with ambulation and other functional activities Target Visit 12 Progress Met PT Problem 3 PT Problem #3 Impaired Strength PT Goal 1 Goal / Goal Update improve bilateral hip abd strength to 4-/5 or better improve bilateral hip flex strength to 4/5 or better improve R knee strength to 5/5 Target Visit 12 PT Problem 4 PT Problem #4 Impaired Functional Mobility PT Goal 1 Goal / Goal Update patient to ambulate 6 minutes without rest or AD use for 1000ft or more oswestry to display less than 15% functional deficits patient to display 25 degrees or less from 0 hamstrings length per the 90/90 test. Target Visit 12 PT Goal 2 Goal / Goal Update no dizziness with supine to sitting or looking at fans. Target Visit 12 PT Problem 5 PT Problem #5 Impaired Range of Motion PT Goal 1 Goal / Goal Update forward active flexion to ankles lateral side bending to 30 degrees bilat Target Visit 12
--- NOTE | 2024-12-30 14:27 | PTOPPROGNS ---
Assessment and note entered by JT File, PT Evaluation Information Assessment Status Progress ICD-10 Condition Codes (PT) Pain in low back M54.50,Difficulty Walking R26.2, Abnormalities of gait and mobility R26.9,Weakness R53.1 Onset 11/30/24 Subjective Information patient reports the lower back feels Good today, and she has no pain in the lower back. she reports she has the most issue with her R buttock and with her dizziness. she reports she still gets dizzy getting up from being in bed, but the cawthorne morgan exercises. she reports she was recently able to step up a step with the R foot. something she has been able to do in a long time. Assessment PT Clinical Summary mrs. richardson presents to skilled PT today for her 10th skilled PT visit for her lower back and dizziness. she has had more complaints of dizziness than lower back issues lately, and treatment focus has shifted to her dizziness symptoms. she reports vertigo like room spinning when looking at fans and getting up from laying supine. she displays no orthostatic hypotension, and reports no issues with driving. we have been having some success treating with cawthorne morgan exercises. continued skilled PT is indicated to work on alleviation of lower back symptoms and dizziness to return to full prior level functional activity performance/quality of life. Plan of Care Interventions Electrical Stimulation,Hot Pack/Cold Pack,Manual Therapy,Neuro Re-education,Patient/Caregiver Education,Therapeutic Activities,Therapeutic Exercise PT Services Indicated Yes Treatment Frequency and continue per initial POC Duration These treatments will address the objective and functional deficits as defined above. The patient will be advanced safely and appropriately in order for the patient to progress towards his/her prior level of function. Additional exercises will be introduced and as well as a comprehensive home exercise program upon discharge, if needed, ?to ensure carryover of functional gains achieved in the clinic. This treatment plan has been reviewed and agreement upon by the patient.
--- NOTE | 2025-01-05 13:55 | OPREHPOC ---
Outpatient Therapy Plan of Care This is a Multidisciplinary Plan of Care that may contain components documented by all disciplines (PT, OT, and ST.) PT Problem 1 PT Problem #1 Knowledge Deficit PT Goal 1 Goal / Goal Update independent and compliant with HEP Target Visit 6 Progress Met PT Problem 2 PT Problem #2 Pain PT Goal 1 Goal / Goal Update patient to report no more than 4/10 pain in the lower back with ambulation and other functional activities Target Visit 12 Progress Met PT Problem 3 PT Problem #3 Impaired Strength PT Goal 1 Goal / Goal Update improve bilateral hip abd strength to 4-/5 or better. met improve bilateral hip flex strength to 4/5 or better. met improve R knee strength to 5/5. met Target Visit 12 Progress Met PT Problem 4 PT Problem #4 Impaired Functional Mobility PT Goal 1 Goal / Goal Update patient to ambulate 6 minutes without rest or AD use for 1000ft or more. met oswestry to display less than 15% functional deficits. missed by 1% patient to display 25 degrees or less from 0 hamstrings length per the 90/90 test. not met Target Visit 12 Progress Partially Met PT Goal 2 Goal / Goal Update no dizziness with supine to sitting or looking at fans. not met, but better Target Visit 12 Progress Not Met PT Problem 5 PT Problem #5 Impaired Range of Motion PT Goal 1 Goal / Goal Update forward active flexion to ankles. not met lateral side bending to 30 degrees bilat. met to the L side Target Visit 12 Progress Partially Met
--- NOTE | 2025-01-05 13:55 | PTOPDC ---
Assessment and note entered by JT File, PT Evaluation Information Assessment Status Discharge ICD-10 Condition Codes (PT) Pain in low back M54.50,Difficulty Walking R26.2, Abnormalities of gait and mobility R26.9,Weakness R53.1 Onset 11/30/24 Subjective Information patient reports the lower back does not really bother her much anymore day to day. she reports she walked into and out of the grocery store the other day without any AD or shopping cart. she reports her dizziness symptoms are also less. she reports she only gets symptoms from laying to sitting now, and they are not as intense or frequent. Reported Pain Level Pain Score 0: Self Report Assessment PT Clinical Summary mrs. richardson presents to skilled PT services for her 12th skilled PT visits for her lower back and dizziness. she presents today with decreased pain and symptoms across the lower back and regarding her dizziness. she has met or partially met all goals for skilled PT as of this date. she will DC skilled PT today, and continue with HEP independent at home for the lower back and habituation exercises. Plan of Care PT Services Indicated Yes
== END 2025-01-05 18:15 | disposition home or self-care (01) ==
LOC: CHSPT 10:57
PROVIDERS: PCP Internal Medicine; Visit Provider Internal Medicine
DX: M54.50 Low back pain, unspecified (principal); R53.1 Weakness; R26.2 Difficulty in walking, not elsewhere classified
CPT/HCPCS: 97110; 97112; 97161; 97530

== ENCOUNTER 2025-04-04 13:05 | Outpatient (RCR) | payer MEDICARE, SELFPAY ==
--- NOTE | 2025-04-04 14:06 | OPREHPOC ---
Outpatient Therapy Plan of Care This is a Multidisciplinary Plan of Care that may contain components documented by all disciplines (PT, OT, and ST.) PT Problem 1 PT Problem #1 Knowledge Deficit PT Goal 1 Goal / Goal Update The patient will be independent in a home exercise program. Target Visit 4 PT Problem 2 PT Problem #2 Pain PT Goal 1 Goal / Goal Update The patient will report no greater than 3/10 SI pain with walking and sit to stand transfers. Target Visit 8 PT Problem 3 PT Problem #3 Impaired Functional Mobility PT Goal 1 Goal / Goal Update The patient will demonstrate 25% or less self perceived disability per the Back Index questionnaire. The patient will transfer sit to stand for 5 repetitions without increased pain. Target Visit 8 PT Problem 4 PT Problem #4 Impaired Gait PT Goal 1 Goal / Goal Update The patient will ambulate 1,000 feet during the 6 MWT without increased SIJ pain to improve community ambulation. Target Visit 8
--- NOTE | 2025-04-04 14:06 | PTOPEVAL1 ---
Assessment and note entered by Rachel Asher, PT Evaluation Information Assessment Status Evaluation ICD-10 Condition Codes (PT) Pain in low back M54.50 Onset 03/23/25 Subjective Information Beatris Clarke reports she has arthritis in her back and she does exercise daily for it. She aggravated her SI joint a couple months ago and she is having difficulty walking. She also notes increased pain when she gets up after sitting for a long period. She notes a lot of pressure around her waist that is worse on the right compared to the left. She went to Dr. Armstrong who recommended a slow release tylenol and PT. She has history of 2 laminectomies at L4 and L5 and has had chronic low back pain. She has had injections in the past that did help. Reported Pain Level Pain Score 4: Self Report Assessment PT Clinical Summary Beatris Clarke presents with bilateral SIJ pain. She has a history of a L4 and L5 laminectomy and has had chronic low back pain. She has difficulty with getting up after sitting for 30 minutes or more and walking. She demonstrates tenderness at the SIJ bilaterally, decreased core strength, decreased bilateral hip strength, decreased lumbar AROM, and left posterior innominate. She will benefit from skilled PT to address these limitations. Plan of Care Interventions Electrical Stimulation,Hot Pack/Cold Pack,Manual Therapy,Mechanical Traction,Neuro Re-education, Patient/Caregiver Education,Therapeutic Activities ,Therapeutic Exercise PT Services Indicated Yes Treatment Frequency and 2 times a week for 8 visits Duration These treatments will address the objective and functional deficits as defined above. The patient will be advanced safely and appropriately in order for the patient to progress towards his/her prior level of function. Additional exercises will be introduced and as well as a comprehensive home exercise program upon discharge, if needed, ?to ensure carryover of functional gains achieved in the clinic. This treatment plan has been reviewed and agreement upon by the patient.
--- NOTE | 2025-05-16 15:24 | OPREHPOC ---
Outpatient Therapy Plan of Care This is a Multidisciplinary Plan of Care that may contain components documented by all disciplines (PT, OT, and ST.) PT Problem 1 PT Problem #1 Knowledge Deficit PT Goal 1 Goal / Goal Update The patient will be independent in a home exercise program. Target Visit 4 Progress Met PT Problem 2 PT Problem #2 Pain PT Goal 1 Goal / Goal Update The patient will report no greater than 3/10 SI pain with walking and sit to stand transfers. Target Visit 8 Progress Met PT Problem 3 PT Problem #3 Impaired Functional Mobility PT Goal 1 Goal / Goal Update The patient will demonstrate 25% or less self perceived disability per the Back Index questionnaire. -not met The patient will transfer sit to stand for 5 repetitions without increased pain. -met Target Visit 8 Progress Partially Met PT Problem 4 PT Problem #4 Impaired Gait PT Goal 1 Goal / Goal Update The patient will ambulate 1,000 feet during the 6 MWT without increased SIJ pain to improve community ambulation. Target Visit 8 Progress Not Met
--- NOTE | 2025-05-16 15:25 | PTOPDC ---
Assessment and note entered by Rachel Asher, PT Evaluation Information Assessment Status Discharge ICD-10 Condition Codes (PT) Pain in low back M54.50 Onset 03/23/25 Subjective Information Beatris Clarke reports she continues to have pain in her right SI joint that is worse when she sits for long periods, when she stands up after prolonged sitting, and with prolonged walking. She has not had any last relief of pain with PT but does note pain is improved after her sessions when she gets stretched. She reports Dr. Armstrong wants her to try yoga. She plans to start yoga after the first of the year. Reported Pain Level Pain Score 3: Self Report Assessment PT Clinical Summary Beatris Clarke has completed 8 skilled PT sessions for chronic low back pain. She is reporting temporary relief in pain after PT sessions but pain is not improved overall. She continues to have limitations with prolonged walking and sitting as well as sit to stand transfers after prolonged sitting. She would like to try yoga and her home exercises as suggested by her doctor and be discharged from PT. She does demonstrate improved tolerance to sit to stand transfers and was able to ambulate for 4 minutes and 4 seconds without a rest break today. She has met 3 out of 5 goals today. She will be discharged. Plan of Care PT Services Indicated No
== END 2025-05-16 20:00 | disposition home or self-care (01) ==
LOC: CHSPT 13:05
PROVIDERS: PCP Internal Medicine; Visit Provider Internal Medicine
DX: M54.50 Low back pain, unspecified (principal)
CPT/HCPCS: 97014; 97110; 97140; 97161; 97750; G0283

== ENCOUNTER 2025-04-25 13:32 | Outpatient (CLI) | payer MEDICARE, SELFPAY ==
--- NOTE | ~2025-04-25 | XR_ITS ---
EXAMINATION: XR sacroiliac jt inj w imag RT, 04/25/2025 14:00 DIXONAC OPERATOR HISTORY: low back pain COMPARISON: No comparisons available. Findings: Intraoperative images, refer to the intraoperative report Reviewed, dictated and finalized at location P. NAC OPERATOR ADDENDUM: 04/25/25 2699 EXAMINATION: XR sacroiliac jt inj w imag RT DATE: 04/25/2025 14:55 INDICATION: Low back pain TECHNIQUE: A time-out was performed to verify the patient's name, date of bir th, and procedure to be performed. The procedure including the risks, benefits, and alternatives was discussed with the patient. Risks discussed included blee ding and infection. The patient understood the risks and agreed to proceed. Th e skin overlying the right sacroiliac joint was prepped and draped in usual serge rile fashion. Anesthetic was administered with 1% lidocaine subcutaneously. A 22 G needle was advanced under fluoroscopic guidance into the joint. Injectio n of 1 mL of Omnipaque 240 confirmed intra-articular position of the needle. S ubsequently, injectate consisting of 5 mm of a 3:1:1 mixture of 1% lidocaine: 4 0 mg/mL Kenalog and 4 mg/mL dexamethasone was instilled. The needle was removed and the entry site was cleaned and dressed. There were no immediate complicat ions. Fluoroscopy exposure time was 1.1 minutes. The total number of images was 5. Total DAP was 6.324 mGycm^2. FINDINGS: Real-time fluoroscopy demonstrates the needle in the right sacroiliac joint. Patient's pain prior to procedure:12/08. Patient's pain following the p rocedure: 06/10. IMPRESSION: 1. Successful right sacroiliac joint injection of local anesthetic and steroid with decrease in the patient's presenting pain.
--- OUTSIDE RECORDS SUMMARY | 2025-04-25 15:21 | XMS_ITS | Clinical Summary ---
Author Organization [facility] Address [address] [place] [id number] Care Team Providers Care Foreign Exchange Trader Name Role Phone Unavailable Primary Care Provider [...] Comments Blood Pressure 144/82 05/06/2016 1:02 PM SOLUTIONS EXECUTIVE CLOUD SALES Pulse 104 05/06/2016 1:02 PM SOLUTIONS EXECUTIVE [employer] SAL[employer] Temperature - - Respiratory Rate - - Oxygen Saturation - - Inhaled Oxygen Concentration - - Weight 81.6 kg (180 lb) 05/06/2016 1:02 PM SOLUTIONS EXECUTIVE [employer] SAL[employer] Height 152.4 cm (5') 05/06/2016 1:02 PM SOLUTIONS EXECUTIVE [employer]D SALES Body Mass Index 35.15 05/06/2016 1:02 PM SOLUTIONS EXECUTIVE [employer] SAL[employer] Plan of Treatment Health Maintenance Due Date Last Done Comments Hepatitis C 1963 DTaP, Tdap and Td Vaccines ( 1 - Tdap) 1965 Zoster Vaccines (1 of 2) 1996 Dexa Scan (General) 11/12/2011 RSV Immunization or 60+ Years (1 - 1-dose 75+ series) 2021 COVID-19 Vaccine ( - 2024-2 6 season) 2025 Influenza Adult (#1) 2025 04/14/2016, 05/02/2015 Colorectal Cancer Screening Colonoscopy (10 Years) Discontinued Pneumococcal Vaccine: 50+ Years Completed 04/14/2016, 01/01/2015 Hepatitis A Vaccines Aged Out No long er eligible based on patient's age to complete this topic Meningococcal B Vaccine Aged Out No l onger eligible based on patient's age to complete this topic Meningococcal Vaccine Aged Out No beau andrei eligible based on patient's age to complete this topic RSV Immunizations Under 20 Months Aged Out No longer eligible based on patient's age to complete this topic Procedures Procedure Name Priority Date/Time Associated Diagnosis Comments COLONOSCOPY Routine SOLUTIONS EXECUTIVE CLOU[employer] SALES from Last 3 Months or Most Recently Relevant to Health Maintenance Results * Colonoscopy ( SOLUTIONS EXECUTIVE [employer] SALES) Narrative [facility] TO EPIC CONVERSION - SOLUTIONS EXECUTIVE [employer]OUD SALES Documented hx of procedure Procedure Note , Generic Conversion, - 04/04/2018 Documented hx of procedure us Generic Conversion Md DE LEON GI PROCEDURE ORDERABLES Final Result [facility] TO EPIC CONVERSION from Last 3 Months or Most Recently Relevant to Health Maintenance
--- OUTSIDE RECORDS SUMMARY | 2025-04-25 15:21 | XMS_ITS | Encounter Summary ---
Author Organization [facility] Address [address] [place] [address] Care Team Providers Care National Recruiter Name Role Phone Waqar Armstrong MD Primary Care Provider [phone] Encounter Details Date Type Department Care Team (Late st Contact Info) Description 08/08/2015 Orders Only [facility] Health Information Management [address] [place] [address] Scanning, Provider Social History Tobacco Use Types Packs/Day Years Used Date Smoking Tobacco: Never Assessed Comments Unknown Sex and Gender Information Value Date Recorded Sex Assigned at Not on file Legal Sex Female 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
--- OUTSIDE RECORDS SUMMARY | 2025-04-25 15:21 | XMS_ITS | Encounter Summary ---
Author Organization [facility] Address [address] [place] [address] Care Team Providers Care Production Lead Name Role Phone Waqar Armstrong MD Primary Care Provider [phone] Encounter Details Date Type Department Care Team (Late st Contact Info) Description 04/12/2008 Orders Only [facility] Information Management [address] [place] [address] Scanning, Provider Social History Tobacco Use Types Packs/Day Years Used Date Smoking Tobacco: Never Assessed Comments Unknown Sex and Gender Information Value Date Recorded Sex Assigned at Not on file Legal Sex Female 4:00 PM SALES REP Gender Identity Female 08/29/2019 4:07 PM CDT [...] on filedocumented in this encounter Care Teams Production Lead Relationship Specialty Start Date End Date Waqar Armstrong MD [address] [place] [address] PCP - General 03/04/17 documented as of this encounter
--- OUTSIDE RECORDS SUMMARY | 2025-04-25 15:21 | XMS_ITS | Encounter Summary ---
Author Organization [facility] Address [address] [place] [address] Care Team Providers Care Contour Grinder Name Role Phone Waqar Armstrong MD Primary Care Provider + [phone] Encounter Details Date Type Department Care Team (Late st Contact Info) Description 07/04/2015 Orders Only [facility] Health Information Management [address] [place] [address] Scanning, Provider Social History Tobacco Use Types Packs/Day Years Used Date Smoking Tobacco: Never Assessed Comments Unknown Sex and Gender Information Value Date Recorded Sex Assigned at Not on file 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
--- OUTSIDE RECORDS SUMMARY | 2025-04-25 15:21 | XMS_ITS | Clinical Summary ---
Author Organization [facility] Address [address] [place] [address] Care Team Providers Care Pediatric Radiologist Name Role Phone Waqar Armstrong MD Primary Care Provider + [phone] Allergies Active Allergy Reactions Criticality Noted Date Comments Doxycycline Hives Medium 11/14/2024 Other Itching Low 11/10/2019 Pt reports itchy eyes Sulfa (Sulfonamide Antibiotics) Hives Medium 11/14/2024 Wheat Other (See comments) Low 11/10/2019 Itchiness Medications montelukast (SINGULAIR) 10 mg tablet Take 10 mg by mouth nightly Active multivitamin capsule Take 1 capsule by mouth daily Active levothyroxine (SYNTHROID) 88 mcg tablet Take 88 mcg by mouth space controller before breakfast Active triamterene-hyd roCHLOROthiazid e (triamterene-hy droCHLOROthiazi de) 37.5-25 mg per tablet/capsule Take 1 tablet/capsule by mouth daily Active pantoprazole DR (PROTONIX) 20 mg EC tablet Take 2 tablets (40 mg total) by mouth daily 180 tablet 3 5 11/16/19 26 Active sucralfate (CARAFATE) 1 gram tablet Take 1 tablet (1 g total) by mouth 2 (two) times a day Take 1 tablet twice daily, before lunch and before supper 60 tablet 5 Active Active Problems Problem Noted Date Diagnosed Date Gastroesophageal reflux disease 07/22/2023 Personal history of colonic polyps 10/02/2020 Overview (10/02/2020): Added automatically from request for surgery [id number] Encounter for screening colonoscopy 10/02/2020 Overview (10/02/2020): Added automatically from request for surgery [id number] Surgical History Surgery Date Site/Laterality Comments TONSILLECTOMY THYROIDECTOMY SECTION CHOLECYSTECTOMY HYSTERECTOMY COLONOSCOPY COLONOSCOPY 03/01/2017 - 03/31/2017 COLONOSCOPY 11/15/2024 ESOPHAGOGASTRODUODENOSCOPY 11/15/2024 Medical History Medical History Date Comments Hypertension Arthritis Respiratory abnormalities Asthma Family History Medical History Relation Name Comments Lung cancer Father Lung cancer Paternal Grandfather 55-60 Colon cancer Neg Hx Relation Name Status Comments Father Paternal Grandfather Social History Tobacco Use Types Packs/Day Years Used Date Smoking Tobacco: Never Smokeless Tobacco: Never Alcohol Use Standard Drinks/Week Comments Never 0 (1 standard drink = 0.6 oz pur e alcohol) AUDIT-C Answer Date Recorded Q1: How often do you have a drink containing alcohol? Never 11/15/2024 Q2: How many drinks containi ng alcohol do you have on a typical day when you are drinking? Patient does not drink Q3: How often do you have si x or more drinks on one occasion? Never 11/15/2024 Personal Safety Answer Date Recorded Have you ever been in or are you currently in a harmful physical or emotional relationship or is someone making you feel afraid or unsafe? 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 Gender Identity Female 08/29/2019 4:07 PM CDT Sexual Orientation Not on file Last Filed Vital Signs Vital Sign Reading Time Taken Comments Blood Pressure 143/73 11/15/2024 11:35 AM CDT Pulse 86 11/15/2024 11:35 AM CDT Temperature 36.4 C (97.6 F) 11/15/2024 11:35 AM CDT Respiratory Rate 20 11/15/2024 11:35 AM CDT Oxygen Saturation 100% 11/15/2024 11:35 AM CDT Inhaled Oxygen Concentration - - Weight 68 kg (150 lb) 11/15/2024 9:34 AM CDT Height 147.3 cm (4' 10) 11/15/2024 9:34 AM CDT Body Mass Index 31.35 11/15/2024 9:34 AM CDT Plan of Treatment Health Maintenance Due Date Last Done Comments Depression Screening 1945 Hepatitis C Screening 1945 Osteoporosis Screening-Bone Density Scan 1945 Hepatitis B Screening 1964 Zoster Vaccine (1 of 2) 1996 Well Visit 65+ 11/12/2011 DTaP/Tdap/Td Vaccine (2 - Td or Tdap) 12/30/2020 12/30/2010 Influenza Vaccine (#1) 2025 9, 03/17/2018, 05/02/2017, Additional history exists Fall Risk Assessment 11/15/2025 11/15/2024 Pneumococcal vaccine 65+ Completed 016, 03/17/2016, 01/01/2015, Additional history exists Breast Cancer Screening-Mammogram Discontinued 024, 09/17/2021 Colon Cancer Screening-CT Colonography Discontinued 11/15/2024, 03/04/2017 Colon Cancer Screening-Colonoscopy Discontinued 11/15/2024, 03/04/2017 Colon Cancer Screening-DNA Stool Discontinued 11/16/19 25, 03/04/2017 Colon Cancer Screening-FIT Discontinued 11/15/2024, Colon Cancer Screening-FOBT Discontinued 11/15/2024, 1 Colon Cancer Screening-Sigmoidoscopy Discontinued 11/15/2024, 03/04/2017 Colorectal Cancer Screening Discontinued Procedures Procedure Name Priority Date/Time Associated Diagnosis Comments COLONOSCOPY 11/15/2024 9:08 AM CDT SCREENING MAMMOGRAM BILATERAL W GUSTAVO Schedule Routine, Read Routine (OP Routine) 09/09/2023 12:53 PM CDT Screening mammogram, encounter for from Last 3 Months or Most Recently Relevant to Health Maintenance Results * Colonoscopy (11/15/2024 9:08 AM CDT) Anatomical Region Laterality Modality Other Narrative Procedure Note Aleida Hernandez MD - 11/15/2024 9:[address] [facility] Patient Name: Beatris Clarke Procedure Date: 11/15/2024 9:08 AM Date of : 1945 Admit Type: Outpatient Age: 79 Gender: Female Attending MD: Aleida Hernandez M.D. Room: [facility] ENDOSCOPY ROOM 1 Note Status: Finalized Patient Profile: This is a 79 year old female. History of polyps. No family history of colon cancer Procedure: Colonoscopy Indications: Surveillance: Personal history of colonic polyps (unknown histology) on last colonoscopy more than 5 years ago, Last colonoscopy: March 2017 Referring MD: Waqar Armstrong M.D. Providers: Aleida Hernandez M.D. Impression: - The entire examined colon is normal overall. - Diverticulosis in the sigmoid colon. - Internal hemorrhoids. - No specimens collected. Recommendation: - Repeat colonoscopy is not recommended for surveillance. Medicines: Monitored Anesthesia Care Complications: No immediate complications. Estimated Blood Loss: Estimated blood loss: none. Procedure: Pre-Anesthesia Assessment: - Prior to the procedure, a History and Physicalwas performed, and patient medications and allergieswere reviewed. The patient's tolerance of previous anesthesia was also reviewed. The risks andbenefits of the procedure and the sedation options and risks were discussed with the patient. All questions were answered, and informed consent was obtained. Prior Anticoagulants: The patient has taken noanticoagulant or antiplatelet agents. ASA Grade Assessment: Per anesthesia note and evaluation. After reviewing the risks and benefits, the patient was deemed in satisfactory condition to undergo the procedure. The benefits, risks and alternatives of theprocedure and sedation were discussed and informed consentwas obtained. All questions were answered. Please referto the signed informed consent document in the medical record. The bowel preparation used was Miralax via split dose instruction. The bowel preparation usedwas bisacodyl tablets via split dose instruction. The scope was passed under direct vision. The Pediatric Colonoscope [id number] was introducedthrough the anus and advanced to the the cecum, identifiedby appendiceal orifice and ileocecal valve. Thequality of the bowel preparation was good. Bowel prep was administered using a split dose. Findings: The perianal and digital rectal examinations were normal. The cecum appeared normal. The colon (entire examined portion) appeared normal overall with no polyps and no mass lesions noted. Few small-mouthed diverticula were found in the sigmoid colon. Internal hemorrhoids were found during retroflexion. The hemorrhoids were small. Electronically signed by Aleida Hernandez M.D. Aleida Hernandez M.D. 11/15/2024 11:26:01 AM Number of Addenda: 0 Note Initiated On: 11/15/2024 9:08 AM Procedure Code(s): --- Professional --- G0105, Colorectal cancer screening; colonoscopy on individual at high risk Diagnosis Code(s): --- Professional --- Z86.010, Personal history of colonic polyps K64.8, Other hemorrhoids K57.30, Diverticulosis of large intestine without perforation orabscess without bleeding CPT copyright 2020 [employer]. All rights reserved. The codes documented in this report are preliminary and upon health information coder reviewmay be revised to meet current compliance requirements. Recognized by the [employer] for promoting quality in endoscopy us Aleida Hernandez MD ENDOSCOPY PROCEDURES Final Result * Screening Mammogram Bilateral W Gustavo (09/09/2023 12:53 PM CDT) Anatomical Region Laterality Modality Breast Bilateral Mammography Narrative 09/10/2023 3:42 PM CDT Mammogram Technique: Bilateral Digital Breast Tomosynthesis, Bilateral C-view 2D Screening mammogram. Views obtained: bilateral craniocaudal and bilateral mediolateral oblique. Computer Aided Detection was performed. Mammogram Findings: The present examination has been compared to prior imaging studies performed at [facility] on 09/17/2021, and at [...] compared to prior imaging studies performed at [facility] on 09/17/2021, and at an outside location on 05/27/2018 and 07/11/2019. There are scattered areas of fibroglandular density. There are calcifications in both breasts. Impression: Calcifications in both breasts are benign. Annual screening mammography is recommended. OVERALL FINAL ASSESSMENT: BI-RADS CATEGORY 2: Benign. us Self Screening Mammogram IMG MAMMO PROCEDURES Fi nal Result from Last 3 Months or Most Recently Relevant to Health Maintenance Insurance [facility] Advance Directives For more information, please contact: [phone] * Full Code (Latest Code Status on File) Date Activated Date Inactivated Comments 11/15/2024 9:27 AM 11/15/2024 4:03 PM * Full Code Date Activated Date Inactivated Comments 11/15/2024 9:27 AM 11/15/2024 9:27 AM Care Teams Pediatric Radiologist Relationship Specialty Start Date End Date Waqar Armstrong MD [address] [place] [address] PCP - General 03/04/17
--- OUTSIDE RECORDS SUMMARY | 2025-04-25 15:21 | XMS_ITS | Encounter Summary ---
Author Organization [facility] Address [address] [place] [address] Care Team Providers Care Mainframe Applications Developer Name Role Phone Waqar Armstrong MD Primary Care Provider [phone] Encounter Details Date Type Department Care Team (Late st Contact Info) Description 03/13/2008 Orders Only [facility] [place] [facility] [address] [place] [address] Scanning, Provider Social History Tobacco Use Types Packs/Day Years Used Date Smoking Tobacco: Never Assessed Comments Unknown Sex and Gender Information Value Date Recorded Sex Assigned at Not on file Legal Sex Female 4:00 PM [employer] Gender Identity Female 08/29/2019 4:07 PM CDT [...] on filedocumented in this encounter Care Teams Mainframe Applications Developer Relationship Specialty Start Date End Date Waqar Armstrong MD [address] [place] [address] PCP - General 03/04/17 documented as of this encounter
== END 2025-04-25 13:33 | disposition home or self-care (01) ==
PROVIDERS: PCP Internal Medicine; Visit Provider Internal Medicine
DX: M54.50 Low back pain, unspecified (principal); M46.1 Sacroiliitis, not elsewhere classified
CPT/HCPCS: 27096; G0260; J1100; J2003; J3301